=== PATIENT | female | born 1950 | race African-American/Black ===

== ENCOUNTER 2017-03-07 10:00 | Inpatient (IN) | payer MEDICARE, MEDICAID ==
[2017-03-13] MEDS ORDERED: Midazolam HCl 2 mg/2 ml Vial ONE (06:48)
[2017-03-13] MEDS ORDERED: Fentanyl 100 MCG/2 ML VIAL ONE ×2 (06:48→09:21)
[2017-03-13] MEDS ORDERED: Sodium Chloride 0.9% 100 ML ONE (07:19)
[2017-03-13] MEDS ORDERED: Propofol 200 MG/20 ML VIAL ONE (07:29)
[2017-03-13] MEDS ORDERED: Glycopyrrolate 0.2 MG/ML 5 ML SYRINGE ONE (07:29)
[2017-03-13] MEDS ORDERED: ePHEDrine/0.9% NaCl/PF SYRINGE 50 mg/10 ml ONE (07:29)
[2017-03-13] MEDS ORDERED: PHENYLEPHRINE-NS 100 MCG/ML 10 ML SYRINGE ONE (07:29)
[2017-03-13] MEDS ORDERED: Ondansetron HCl/PF 4 MG/2 ML Vial ONE (07:29)
[2017-03-13] MEDS ORDERED: Lidocaine 1% PF 5 ML VIAL ONE (07:29)
[2017-03-13] MEDS ORDERED: Promethazine HCl 25 MG/ML VIAL IM PRN (08:56)
[2017-03-13] MEDS ORDERED: Ondansetron HCl/PF 4 MG/2 ML Vial IVP PRN ×2 (08:56→10:00)
[2017-03-13] MEDS ORDERED: Dextrose 5% in Water 1,000 ML IV PRN (08:58)
[2017-03-13] MEDS ORDERED: Insulin Regular 300 UNITS/3 ML VIAL SC PRN (08:58)
[2017-03-13] MEDS ORDERED: Dextrose 50% Abboject 50 ML SYRINGE SLOW IVP PRN (08:58)
--- NOTE | 2017-03-13 09:03 | OP ---
PREOPERATIVE DIAGNOSIS: Unwanted ileostomy. SURGEON: Tono Bob M.D. PROCEDURE PERFORMED: Ileostomy closure. INDICATIONS: The patient is a 66-year-old female who underwent colon resection who had a protective loop ileostomy. FINDINGS: Healthy bowel. PROCEDURE IN DETAIL: After informed consent was obtained, the patient was taken to the operating ro om and given general endotracheal anesthesia, placed in the supine position. Abdomen was prepped an d draped in usual fashion. The bowel was closed with a pursestring of 0 silk suture. Then the skin was prepped and draped in the usual fashion. An elliptical incision was performed to incise the sk in and then the subcu was divided sharply circumferentially down to the bowel and fascia. The fasci a was from the bowel circumferentially to free it up. Then the old skin and fat was remov ed to freshen up the edge of the bowel. The bowel was closed with interrupted 3-0 Vicryl suture as a handsewn single layer and anastomoses or closure, hemostasis assured. Then gloves and instruments were changed and the field was irrigated with 2 liters of saline, pulse irrigated, then the fascia closed with a running #1 PDS. The subcu was closed with interrupted 3-0 Vicryl. Skin closed with s kin marybeth. David of Telfa were inserted between the marybeth. Sterile bandage applied. The patie nt tolerated the procedure well and transferred to recovery in good condition. Sponge and needle co unt verified correct x2.
[2017-03-13] MEDS ORDERED: Promethazine HCl 25 MG/ML VIAL IM/IV PRN (10:00)
[2017-03-13] MEDS ORDERED: Non-Formulary Medication 1 EACH PO PRN (10:00)
[2017-03-13] MEDS: 1/2 NS w/KCL 20 mEq 1,000 ML IV SCH ×3 (10:49→23:42)
[2017-03-13] MEDS: Famotidine 20 MG TAB PO SCH ×2 (10:50→19:59)
[2017-03-13] MEDS: Famotidine/PF 20 mg/2ml Vial SLOW IVP SCH ×2 (11:12→20:37)
[2017-03-13] MEDS: Acetaminophen 1,000 MG in Premix Bag 1 BAG IVPB SCH ×3 (11:12→23:37)
[2017-03-14 06:02] LABS: #Eosinphils 0.1 thou/uL (0.0-0.7); #Monocytes 0.5 thou/uL (0.11-0.59); #Neutrophils 4.9 thou/uL (1.40-6.50); %Basophils 0.1 % (0.0-1.0); %Eosinophils 2.3 % (0.0-10.0); %Lymphocytes 14.6 % (21.0-51.0); %Monocytes 7.9 % (0.0-10.0); Mean Platelet Volume 8.1 fL (7.4-10.4); Red Blood Cell (RBC) Count 3.46 mill/uL (4.20-5.40); White Blood Cell (WBC) Count 6.6 thou/uL (4.8-10.8)
[2017-03-14] MEDS: Acetaminophen 1,000 MG in Premix Bag 1 BAG IVPB SCH (06:17)
[2017-03-14 06:28] LABS: Anion Gap 11 mmol/L (10-20); BUN (Urea Nitrogen) 27 mg/dL (9.8-20.1); Calc. Creatinine Clearance 0 mL/min (70-130); Calcium 8.8 mg/dL (7.8-10.44); Carbon Dioxide 18 mmol/L (23-31); Chloride 111 mmol/L (98-107); Estimated GFR-MDRD 33
[2017-03-14] MEDS: Famotidine 20 MG TAB PO SCH ×2 (08:07→20:23)
[2017-03-14] MEDS: Famotidine/PF 20 mg/2ml Vial SLOW IVP SCH ×2 (08:07→20:25)
[2017-03-14] MEDS: 1/2 NS w/KCL 20 mEq 1,000 ML IV SCH ×3 (08:08→23:48)
[2017-03-15] MEDS: 1/2 NS w/KCL 20 mEq 1,000 ML IV SCH (08:13)
[2017-03-15] MEDS: Famotidine 20 MG TAB PO SCH ×2 (08:14→21:28)
[2017-03-15] MEDS: Famotidine/PF 20 mg/2ml Vial SLOW IVP SCH ×2 (08:14→21:29)
[2017-03-16 05:10] VITALS: BP 106/59; TEMP 98.1
[2017-03-16] MEDS: Famotidine/PF 20 mg/2ml Vial SLOW IVP SCH (07:36)
[2017-03-16] MEDS: Famotidine 20 MG TAB PO SCH (09:38)
--- NOTE | 2017-03-16 13:55 | DIS ---
DISCHARGE DIAGNOSIS: Unwanted ileostomy. PROCEDURES DURING ADMISSION: Ileostomy closure. HOSPITAL COURSE: The patient was admitted, taken to the operating room where she underwent a closur e of ileostomy. Postoperatively, she has done well. Bowel functions returned. She is tolerating a regular diet. She is discharged home on [place]. She will follow up with me in 5 days for staple re moval.
== END 2017-03-16 11:54 | disposition home or self-care (01) | DRG 331 ==
LOC: SURG A 03-13 05:32
PROVIDERS: ADMIT Surgery; ATTEND Surgery
PROC: 0DBB0ZZ Excision of Ileum, Open Approach (ICD-10-PCS; principal; 2017-03-13)
DX: Z43.2 Encounter for attention to ileostomy (principal); I10 Essential (primary) hypertension; E11.9 Type 2 diabetes mellitus without complications; Z96.653 Presence of artificial knee joint, bilateral; Z83.3 Family history of diabetes mellitus; Z82.3 Family history of stroke; Z82.49 Family history of ischemic heart disease and other diseases of the circulatory system
CPT/HCPCS: 36415; 36416; 80048; 85025; A4216; J0131; J0694; J2001; J2250; J2405; J2704; J3010; J7050; S0028

== ENCOUNTER 2017-03-07 10:19 | Outpatient (CLI) | payer MEDICARE, MEDICAID ==
[2017-03-07 13:36] LABS: #Eosinphils 0.1 thou/uL (0.0-0.7); #Lymphocytes 1.5 thou/uL (1.20-3.40); #Monocytes 0.7 thou/uL (0.11-0.59); %Basophils 0.5 % (0.0-1.0); %Eosinophils 1.2 % (0.0-10.0); %Lymphocytes 24.1 % (21.0-51.0); %Monocytes 11.1 % (0.0-10.0); Hematocrit 31.7 % (36.0-47.0); Mean Platelet Volume 8.8 fL (7.4-10.4); Red Blood Cell (RBC) Count 3.76 mill/uL (4.20-5.40); White Blood Cell (WBC) Count 6.3 thou/uL (4.8-10.8)
[2017-03-07 13:52] LABS: ALT (SGPT) Less than 7 U/L (8-55); AST (SGOT) 12 U/L (5-34); Alkaline Phosphatase 118 U/L (40-150); Anion Gap 13 mmol/L (10-20); BUN (Urea Nitrogen) 42 mg/dL (9.8-20.1); Bilirubin, Total 0.3 mg/dL (0.2-1.2); Calc. Creatinine Clearance 0 mL/min (70-130); Calcium 9.6 mg/dL (7.8-10.44); Carbon Dioxide 17 mmol/L (23-31); Chloride 111 mmol/L (98-107); Estimated GFR-MDRD 29; Globulin 4.8 g/dL (2.4-3.5); Protein, Total 8.6 g/dL (6.0-8.3)
[2017-03-08 04:41] LABS: Hemoglobin A1c 6.3 % (4.0-6.0)
--- NOTE | 2017-03-09 06:28 | EKG ---
Test Reason : PREOP Blood Pressure : / mmHG Vent. Rate : 056 BPM Atrial Rate : 056 BPM P-R Int : 152 ms QRS Dur : 098 ms QT Int : 412 ms P-R-T Axes : 070 026 054 degrees QTc Int : 397 ms Sinus bradycardia Otherwise normal ECG When compared with ECG of 25-AUG-2016 12:53, Vent. rate has decreased BY 45 BPM Confirmed by SARAVANAN MOISE ([id number]) on 03/09/2017 6:27:42 AM Referred By: SAVANNA Confirmed By:SARAVANAN MOISE
== END 2017-03-07 10:20 | disposition home or self-care (01) ==
LOC: LABBT 10:19
PROVIDERS: ATTEND Surgery
DX: Z01.818 Encounter for other preprocedural examination (principal); Z93.2 Ileostomy status
CPT/HCPCS: 80053; 83036; 85025; 93005; 93010

== ENCOUNTER 2017-05-18 12:49 | Inpatient (IN) | payer MEDICARE, MEDICAID ==
[2017-05-18] MEDS ORDERED: Iopamidol 370 76% 100 ML VIAL ONE (14:04)
[2017-05-18 14:09] LABS: Hematocrit 30.4 % (36.0-47.0); Mean Platelet Volume 7.9 fL (7.4-10.4); White Blood Cell (WBC) Count 14.2 thou/uL (4.8-10.8)
[2017-05-18 14:32] LABS: Anisocytosis SLIGHT = 6-15 cells (100X) (0-5/hpf); Band 10 % (5-11); Hypochromia SLIGHT = 6-15 cells (100X) (0-5/hpf); Neutrophil 77 % (42-75); Polychromasia SLIGHT = 2-3 cells (100X) (0-2/hpf); Reactive Lymphocytes 1 % (0-10); Target Cells SLIGHT = 2-5 cells (100X) (0-1/hpf)
[2017-05-18 14:35] LABS: ALT (SGPT) 12 U/L (8-55); AST (SGOT) 16 U/L (5-34); Alkaline Phosphatase 110 U/L (40-150); Anion Gap 14 mmol/L (10-20); BUN (Urea Nitrogen) 24 mg/dL (9.8-20.1); Bilirubin, Total 0.7 mg/dL (0.2-1.2); Calc. Creatinine Clearance 0 mL/min (70-130); Calcium 9.3 mg/dL (7.8-10.44); Carbon Dioxide 25 mmol/L (23-31); Chloride 100 mmol/L (98-107); Estimated GFR-MDRD 36; Globulin 4.7 g/dL (2.4-3.5); Protein, Total 8.3 g/dL (6.0-8.3)
[2017-05-18] MEDS ORDERED: Piperacillin/Tazobactam 3.375 GM in Sodium Chloride 0.9% 100 ML IVPB ONE (15:30)
--- NOTE | 2017-05-18 15:45 | CT ---
CT OF THE ABDOMEN AND PELVIS WITH CONTRAST: COMPARISON: 10/16/16. HISTORY: Wound infection, recent colostomy take-down/reversal. Swelling and drainage to the area. TECHNIQUE: Multiple contiguous axial images were obtained in a CT of the abdomen and pelvis with contrast. Cari nal reformats were performed. FINDINGS: Postsurgical changes are seen in the right lower quadrant of the abdomen from colostomy take-down. T here is air and stranding change in the subcutaneous tissues. The region of air measures approximate ly 5.9 cm in size. There is air along the abdominal fascia. This air may be within loops of small b owel or this area could be separate from the small bowel loops. This differentiation cannot be perfo rmed without oral contrast. The patient is status post cholecystectomy and hysterectomy. The liver, kidneys, adrenal glands, spl een, and pancreas are unremarkable, although evaluation is limited on this noncontrast examination. No free fluid is seen in the abdomen or pelvis. There is moderate stool in the colon. Scattered diverticula are seen in the colon. The small bowel is normal in caliber without significant distention. No abdominal or pelvic lymphadenopathy are seen . Degenerative changes and postsurgical changes are seen in the spine. The visualized inferior thorax is unremarkable. IMPRESSION: 1. The patient appears to have air and stranding change in the right lower quadrant wound. This lik trav represents a wound infection. If the patient has an open packed wound then the air may be from t he open wound. However, if the wound is closed, then this air may be secondary to a focal abscess in this location. 2. There are bubbles of air along the abdominal fascia. These may represent air within small bowel loops. Separate air pockets could not be excluded as no p.o. contrast was administered for this exam ination. POS: [facility]
[2017-05-18] MEDS ORDERED: Acetaminophen 325 MG TAB PO PRN (17:57)
[2017-05-18] MEDS ORDERED: Ondansetron ODT 4 MG TAB SL PRN (17:57)
[2017-05-18] MEDS ORDERED: Ondansetron HCl/PF 4 MG/2 ML Vial IVP PRN (17:57)
[2017-05-18] MEDS ORDERED: Dextrose 5% in Water 1,000 ML IV PRN (17:58)
[2017-05-18] MEDS ORDERED: Insulin Regular 300 UNITS/3 ML VIAL SC PRN (17:58)
[2017-05-18] MEDS ORDERED: Dextrose 50% Abboject 50 ML SYRINGE IVP PRN (17:58)
[2017-05-18 20:09] VITALS: BMI 41.6
[2017-05-18] MEDS ORDERED: Piperacillin/Tazobactam 3.375 GM in Sodium Chloride 0.9% 100 ML IVPB SCH (23:59)
[2017-05-19] MEDS ORDERED: 1/2 NS w/KCL 20 mEq 1,000 ML IV SCH (00:01)
[2017-05-19] MEDS ORDERED: Propofol 500 MG/50 ML VIAL ONE (07:02)
[2017-05-19] MEDS ORDERED: Fentanyl 100 MCG/2 ML VIAL ONE ×2 (07:02→12:52)
[2017-05-19] MEDS ORDERED: Piperacillin/Tazobactam 3.375 GM, Admixture Fee 1 EACH in Sodium Chloride 0.9% 100 ML IVPB SCH (12:45)
[2017-05-19] MEDS ORDERED: Midazolam HCl 2 mg/2 ml Vial ONE (12:52)
[2017-05-19] MEDS ORDERED: Morphine 4 MG/ML Carpuject SLOW IVP PRN (14:00)
[2017-05-19] MEDS ORDERED: Dextrose 5% in Water 1,000 ML IV PRN ×2 (14:00→14:05)
[2017-05-19] MEDS ORDERED: hydrALAZINE 20 MG/ML VIAL SLOW IVP PRN (14:00)
[2017-05-19] MEDS ORDERED: Ondansetron HCl/PF 4 MG/2 ML Vial IVP PRN ×2 (14:00→14:57)
[2017-05-19] MEDS ORDERED: Mag-Al 1200 mg/1200 mg/30 ML UDCUP PO PRN (14:00)
[2017-05-19] MEDS ORDERED: Dextrose 50% Abboject 50 ML SYRINGE SLOW IVP PRN ×2 (14:00→14:05)
[2017-05-19] MEDS ORDERED: Calcium Carbonate 500 MG ChewTAB PO PRN (14:00)
[2017-05-19] MEDS ORDERED: Promethazine HCl 25 MG/ML VIAL IM PRN ×2 (14:00→14:57)
[2017-05-19] MEDS ORDERED: traMADol HCl 50 MG TAB PO PRN ×2 (14:03)
[2017-05-19] MEDS ORDERED: Insulin Regular 300 UNITS/3 ML VIAL SC PRN (14:05)
--- NOTE | 2017-05-19 14:22 | OP ---
PREOPERATIVE DIAGNOSIS: Abdominal wall abscess. SURGEON: Tono Bob M.D. PROCEDURE PERFORMED: Incision and drainage, removal of old suture material irrigation and wound VAC placement. INDICATIONS: The patient is a 66-year-old female who had a previous ileostomy a few months ago. She got a wound infection and was treated with wound VAC and it seemed to heal and then over the last co uple of days, it recurred. FINDINGS: There was some brownish fluid. It did not have a foul smell. I could not see any definit e fistula or exposed bowel. The fascia was opened, but it was not obviously leaking from the bowel. There were a couple of large PDS sutures, [id number] were removed that were fractured and could be possible nidus for this. DESCRIPTION OF PROCEDURE: After informed consent was obtained, the patient was taken to the operatin g room and given general mask anesthesia, placed in the supine position. Her abdomen was prepped and draped in the usual fashion. An incision was performed through the old scar to release the brown pu rulent fluid. This was sent for culture and sensitivity. The wound was inspected and could not see a source, but there was a couple of [id number] of PDS that were removed. The wound was thoroug hly irrigated with pulse offender job retention specialist and 3 liters of saline. Hemostasis achieved with electrocautery. Wound care team came in and placed a wound VAC. The patient tolerated this procedure well and was t ransferred to recovery in good condition.
[2017-05-19] MEDS ORDERED: Morphine 4 MG/ML VIAL IV PRN ×2 (14:27)
[2017-05-19] MEDS ORDERED: Promethazine HCl 25 MG/ML VIAL SLOW IVP PRN (14:57)
[2017-05-19] MEDS ORDERED: Ondansetron HCl/PF 4 MG/2 ML Vial ONE (15:25)
[2017-05-19] MEDS ORDERED: ePHEDrine/0.9% NaCl/PF SYRINGE 50 mg/10 ml ONE (15:25)
[2017-05-19] MEDS ORDERED: Dexamethasone 20 MG/5 ML VIAL ONE (15:25)
[2017-05-19] MEDS ORDERED: Propofol 200 MG/20 ML VIAL ONE (15:25)
[2017-05-19] MEDS ORDERED: PHENYLEPHRINE-NS 100 MCG/ML 10 ML SYRINGE ONE (15:25)
[2017-05-19] MEDS ORDERED: Lidocaine 1% PF 5 ML VIAL ONE (15:25)
[2017-05-19] MEDS: Piperacillin/Tazobactam 3.375 GM, Admixture Fee 1 EACH in Sodium Chloride 0.9% 100 ML IVPB SCH (19:38)
[2017-05-19] MEDS: Sodium Chloride 0.9% 1,000 ML IV SCH ×2 (19:52→22:52)
[2017-05-19] MEDS: Famotidine 20 MG TAB PO SCH (20:10)
[2017-05-19] MEDS: Docusate 100 MG CAP PO SCH (20:10)
[2017-05-19] MEDS: Famotidine/PF 20 mg/2ml Vial SLOW IVP SCH (20:10)
[2017-05-20] MEDS: Piperacillin/Tazobactam 3.375 GM, Admixture Fee 1 EACH in Sodium Chloride 0.9% 100 ML IVPB SCH ×3 (00:10→12:07)
[2017-05-20] MEDS: Sodium Chloride 0.9% 1,000 ML IV SCH (05:30)
[2017-05-20 06:33] LABS: Hematocrit 27.6 % (36.0-47.0); Mean Platelet Volume 7.7 fL (7.4-10.4); Neutrophil 78 % (42-75); Red Blood Cell (RBC) Count 3.34 mill/uL (4.20-5.40); White Blood Cell (WBC) Count 10.1 thou/uL (4.8-10.8)
[2017-05-20 07:53] VITALS: TEMP 98.8
[2017-05-20] MEDS: Famotidine 20 MG TAB PO SCH (08:40)
[2017-05-20] MEDS: Famotidine/PF 20 mg/2ml Vial SLOW IVP SCH (08:41)
[2017-05-20] MEDS: Docusate 100 MG CAP PO SCH (08:41)
[2017-05-20] MEDS ORDERED: Enoxaparin Sodium 40 MG/0.4 ML SYRINGE SC SCH (09:00)
[2017-05-20 12:24] VITALS: BP 122/77
--- NOTE | 2017-05-20 13:24 | PRG ---
DATE OF SERVICE: 05/20/2017 SUBJECTIVE: Ms. Alvarado is doing well today. She is awake and alert and tolerated her diet. Her wo und VAC has been applied by Wound Care. OBJECTIVE: LUNGS: Clear to auscultation. CARDIAC: Regular rate and rhythm without murmur or gallop. ABDOMEN: Soft, nontender. VITAL SIGNS: Temperature 98.3, 67, 122/77. Patient is doing well after drainage of the ileostomy reversal site abscess. Wound VAC has been appl ied. She is being discharged home today. Prescriptions, antibiotics and analgesics have been writte n by Dr. Bob. Home health care has been arranged. She is being discharged home today.
== END 2017-05-20 13:13 | disposition home or self-care (01) | DRG 857 ==
LOC: ERS 12:49 → SURG B 14:51
PROVIDERS: ADMIT Surgery; ATTEND Surgery
PROC: 0J980ZZ Drainage of Abdomen Subcutaneous Tissue and Fascia, Open Approach (ICD-10-PCS; principal; 2017-05-19)
PROC: 0JC80ZZ Extirpation of Matter from Abdomen Subcutaneous Tissue and Fascia, Open Approach (ICD-10-PCS; 2017-05-19)
DX: T81.4XXA Infection following a procedure, initial encounter (principal); L02.211 Cutaneous abscess of abdominal wall; I10 Essential (primary) hypertension; E11.9 Type 2 diabetes mellitus without complications; E78.5 Hyperlipidemia, unspecified; Z90.49 Acquired absence of other specified parts of digestive tract
CPT/HCPCS: 36415; 36416; 74177; 80053; 80061; 83036; 84439; 84443; 85025; 87040; 87070; 87076; 87077; 87186; 87205; 96365; J1100; J1815; J2001; J2250; J2405; J2543; J2704; J3010; J3370; J7050

== ENCOUNTER 2017-06-17 10:42 | Emergency (ER) | payer MEDICARE, MEDICAID ==
[2017-06-17] MEDS ORDERED: Acetaminophen 500 MG TAB ONE ×2 (11:09)
[2017-06-17 11:38] LABS: #Lymphocytes 1.3 thou/uL (1.20-3.40); #Monocytes 1.1 thou/uL (0.11-0.59); #Neutrophils 9.1 thou/uL (1.40-6.50); %Basophils 0.3 % (0.0-1.0); %Eosinophils 0.2 % (0.0-10.0); %Lymphocytes 10.9 % (21.0-51.0); %Monocytes 9.8 % (0.0-10.0); %Neutrophils 78.7 % (42.0-75.0); Hemoglobin 9.9 g/dL (12.0-16.0); Mean Corpuscular HGB CONC 31.3 g/dL (32.0-36.0); Mean Corpuscular Hemoglobin 25.7 pg (27.0-31.0); Mean Corpuscular Volume 82.1 fl (81.0-99.0); Mean Platelet Volume 8.5 fL (7.4-10.4); Platelet Count 288 thou/uL (130-400); RBC Distribution Width 16.8 % (11.5-14.5); Red Blood Cell (RBC) Count 3.87 mill/uL (4.20-5.40); White Blood Cell (WBC) Count 11.6 thou/uL (4.8-10.8)
[2017-06-17 11:54] LABS: Albumin 3.9 g/dL (3.4-4.8)
[2017-06-17 12:07] LABS: ALT (SGPT) 7 U/L (8-55); AST (SGOT) 14 U/L (5-34); Alkaline Phosphatase 104 U/L (40-150); BUN (Urea Nitrogen) 20 mg/dL (9.8-20.1); Bilirubin, Total 0.7 mg/dL (0.2-1.2); CRP (Inflammatory) 10.97 mg/dL (= or < 0.5); Calc. Creatinine Clearance 0 mL/min (70-130); Calcium 9.4 mg/dL (7.8-10.44); Carbon Dioxide 24 mmol/L (23-31); Chloride 99 mmol/L (98-107); Estimated GFR-MDRD 44; Globulin 4.4 g/dL (2.4-3.5); Glucose 130 mg/dL (80-115); Potassium 3.4 mmol/L (3.5-5.1); Protein, Total 8.2 g/dL (6.0-8.3); Sodium 135 mmol/L (136-145)
[2017-06-17 12:09] LABS: Anion Gap 15 mmol/L (10-20)
--- NOTE | 2017-06-17 12:18 | RAD ---
2 VIEWS OF CHEST: Date: 06/17/17 COMPARISON: 08/24/16. HISTORY: Swelling and pain. FINDINGS: There is atherosclerotic calcification of the aortic arch. There is no pneumothorax or pleural fluid, and no focal consolidation or alveolar edema. There is elevation of the right hemidiaphragm. There i s slight blunting of the left costophrenic angle which could represent small volume left pleural effu sada and/or pleural scar. IMPRESSION: Prominence of the cardiac silhouette with no lobar consolidation or alveolar edema. POS: [facility]
== END 2017-06-17 12:31 | disposition home or self-care (01) ==
LOC: ERS 10:42
DX: K94.02 Colostomy infection (principal); E11.9 Type 2 diabetes mellitus without complications; E78.5 Hyperlipidemia, unspecified; I10 Essential (primary) hypertension; E66.9 Obesity, unspecified; Z79.899 Other long term (current) drug therapy
CPT/HCPCS: 36415; 71046; 80053; 85025; 85652; 86140

== ENCOUNTER 2017-06-18 10:42 | Emergency (ER) | payer MEDICARE, MEDICAID ==
[2017-06-18] MEDS ORDERED: Cephalexin 250 MG CAP ONE (11:21)
[2017-06-18] MEDS ORDERED: Sulfameth/Trimethoprim DS 800-160mg TAB ONE (11:21)
== END 2017-06-18 11:30 | disposition home or self-care (01) ==
LOC: ERS 10:42
DX: Z48.817 Encounter for surgical aftercare following surgery on the skin and subcutaneous tissue (principal); E11.9 Type 2 diabetes mellitus without complications; E78.5 Hyperlipidemia, unspecified; I10 Essential (primary) hypertension; Z79.899 Other long term (current) drug therapy
CPT/HCPCS: 99282

== ENCOUNTER 2017-07-25 08:00 | Inpatient (IN) | payer MEDICARE, MEDICAID ==
[2017-07-25 14:02] VITALS: BMI 42.7
[2017-07-31] MEDS ORDERED: cefOXitin 2 GM, Syringe 1 ML in Sterile Water 10 ML SLOW IVP SCH (06:30)
[2017-07-31] MEDS ORDERED: Fentanyl 100 MCG/2 ML VIAL ONE ×3 (07:03→10:26)
[2017-07-31] MEDS ORDERED: Midazolam HCl 2 mg/2 ml Vial ONE (07:03)
[2017-07-31] MEDS ORDERED: Ondansetron HCl/PF 4 MG/2 ML Vial IVP PRN ×3 (09:39→11:01)
[2017-07-31] MEDS ORDERED: hydrALAZINE 20 MG/ML VIAL SLOW IVP PRN (09:39)
[2017-07-31] MEDS ORDERED: Promethazine HCl 25 MG/ML VIAL IM PRN ×3 (09:39→11:01)
[2017-07-31] MEDS ORDERED: Promethazine HCl 25 MG/ML VIAL SLOW IVP PRN (09:57)
[2017-07-31] MEDS ORDERED: Meperidine HCl/PF 25 MG/ML VIAL SLOW IVP PRN (09:57)
--- NOTE | 2017-07-31 10:29 | OP ---
DATE OF PROCEDURE: 07/31/2017 PREOPERATIVE DIAGNOSIS: Chronic enterocutaneous fistula. SURGEON: Tono Bob M.D. PROCEDURE PERFORMED: Exploratory laparotomy, small bowel resection with anastomosis. INDICATIONS: A 67-year-old female who had undergone an ileostomy takedown about a year ago, continue d to have drainage. She had 2 exploratory surgeries removing suture material, continued to drain. A ttempts at fistulogram did not show officially until recently, this one demonstrated connection to th e small bowel. FINDINGS: She had undergone treatment with bowel rest and did not seem to change this. FINDINGS: A loop of ileum that was attached to the abdominal wall was the source of the fistula. PROCEDURE IN DETAIL: After informed consent was obtained, the patient was taken to the operating mel m, given general endotracheal anesthesia. A low midline incision was performed. The subcu divided s harply. It was a very tedious dissection as she had incredible intraabdominal adhesions. It was a v brigid slow process of lysis of adhesions performed sharply. Eventually was able to free up the anterio r abdominal wall and then move towards the area of concern, approached it circumferentially eventuall y got into it. I closed this opening temporarily with a 2-0 silk suture, I then freed it up from the anterior abdominal wall. I was able to isolate the bowel limb and then divide the small bowel with the FAWN on either side and then divided the mesentery with the LigaSure, it was sent to pathology for further analysis. The wound was irrigated with pulse hand surgeon from inside, then a primary end-to-e nd anastomosis was performed using a single layer handsewn technique with 3-0 Vicryl suture circumfer entially. Again, the abdominal cavity was irrigated thoroughly. Hemostasis was assured. The fascia closed with what omentum I could fine was placed anterior. Then the fascia closed with interrupted [id number] of #1 Prolene. The subcutaneous was irrigated with pulse hand surgeon and then loosely approximated with interrupted 3-0 Vicryls and then about every centimeter and a half skin stapled an d then adilson in between. The fistulous tract was also irrigated with pulse hand surgeon and packed with iodoform gauze. Sterile bandage applied. The patient tolerated the procedure well and transferred to recovery in good condition. Sponge and needle count verified correct x2.
[2017-07-31] MEDS ORDERED: diphenhydrAMINE 50 MG/ML VIAL IM PRN (11:01)
[2017-07-31] MEDS ORDERED: Zolpidem Tartrate 5 MG TAB PO PRN (11:01)
[2017-07-31] MEDS ORDERED: Fentanyl 5000 MCG/250 ML CADD IVPB PRN (11:01)
[2017-07-31] MEDS ORDERED: diphenhydrAMINE 25 MG CAP PO PRN (11:01)
[2017-07-31] MEDS ORDERED: diphenhydrAMINE 50 MG/ML VIAL IVP PRN (11:01)
[2017-07-31] MEDS ORDERED: Naloxone HCl 0.4 mg/ml Vial IV PRN (11:01)
[2017-07-31] MEDS ORDERED: fentaNYL Citrate/PF 2,000 MCG in Sodium Chloride 0.9% 60 ML IV PRN (11:15)
[2017-07-31] MEDS ORDERED: Communication Order-Pharmacy FS SCH (11:15)
[2017-07-31] MEDS: Sodium Chloride 0.9% 1,000 ML IV SCH ×2 (12:52→18:07)
[2017-07-31] MEDS: Ketorolac Tromethamine 30 MG/ML VIAL IVP SCH ×2 (12:53→17:51)
[2017-07-31] MEDS ORDERED: PHENYLEPHRINE-NS 100 MCG/ML 10 ML SYRINGE ONE (14:39)
[2017-07-31] MEDS ORDERED: Ondansetron HCl/PF 4 MG/2 ML Vial ONE (14:39)
[2017-07-31] MEDS ORDERED: Ketorolac Tromethamine 30 MG/ML VIAL ONE (14:39)
[2017-07-31] MEDS ORDERED: Lidocaine 1% PF 5 ML VIAL ONE (14:39)
[2017-07-31] MEDS ORDERED: ePHEDrine/0.9% NaCl/PF SYRINGE 50 mg/10 ml ONE (14:39)
[2017-07-31] MEDS ORDERED: Glycopyrrolate 0.2 MG/ML 5 ML SYRINGE ONE (14:39)
[2017-07-31] MEDS ORDERED: Propofol 200 MG/20 ML VIAL ONE (14:39)
[2017-07-31] MEDS ORDERED: Dexamethasone 20 MG/5 ML VIAL ONE (14:39)
[2017-07-31] MEDS: Meropenem 2 GM, IV Admixture Fee-Chemo 1 UNITS in Sodium Chloride 0.9% 100 ML IVPB SCH ×2 (15:14→21:34)
[2017-07-31] MEDS: Famotidine 20 MG TAB PO SCH (20:03)
[2017-07-31] MEDS: Famotidine/PF 20 mg/2ml Vial SLOW IVP SCH (21:34)
[2017-08-01] MEDS: Ketorolac Tromethamine 30 MG/ML VIAL IVP SCH ×4 (00:44→18:16)
[2017-08-01] MEDS: Sodium Chloride 0.9% 1,000 ML IV SCH ×3 (01:40→18:16)
[2017-08-01 04:42] LABS: #Lymphocytes 0.8 thou/uL (1.20-3.40); #Monocytes 0.6 thou/uL (0.11-0.59); #Neutrophils 10.8 thou/uL (1.40-6.50); %Eosinophils 0.1 % (0.0-10.0); %Lymphocytes 6.4 % (21.0-51.0); %Neutrophils 88.6 % (42.0-75.0); Hemoglobin 9.9 g/dL (12.0-16.0); Mean Corpuscular Hemoglobin 25.7 pg (27.0-31.0); Mean Corpuscular Volume 82.9 fl (81.0-99.0); Mean Platelet Volume 9.7 fL (7.4-10.4); Platelet Count 221 thou/uL (130-400); RBC Distribution Width 17.6 % (11.5-14.5); Red Blood Cell (RBC) Count 3.85 mill/uL (4.20-5.40); White Blood Cell (WBC) Count 12.2 thou/uL (4.8-10.8)
[2017-08-01 05:07] LABS: Anion Gap 15 mmol/L (10-20); BUN (Urea Nitrogen) 38 mg/dL (9.8-20.1); Calc. Creatinine Clearance 55 mL/min (70-130); Calcium 8.7 mg/dL (7.8-10.44); Carbon Dioxide 24 mmol/L (23-31); Chloride 107 mmol/L (98-107); Estimated GFR-MDRD 36; Glucose 167 mg/dL (80-115); Potassium 3.6 mmol/L (3.5-5.1); Sodium 142 mmol/L (136-145)
[2017-08-01] MEDS: Meropenem 2 GM, IV Admixture Fee-Chemo 1 UNITS in Sodium Chloride 0.9% 100 ML IVPB SCH ×3 (06:59→21:27)
[2017-08-01] MEDS ORDERED: Sodium Chloride 0.9% 1,000 ML IV SCH (07:45)
[2017-08-01] MEDS: Enoxaparin Sodium 40 MG/0.4 ML SYRINGE SC SCH (09:07)
[2017-08-01] MEDS: Famotidine/PF 20 mg/2ml Vial SLOW IVP SCH ×2 (09:07→19:55)
[2017-08-01] MEDS: Famotidine 20 MG TAB PO SCH ×2 (09:32→21:27)
[2017-08-01] MEDS ORDERED: Dextrose 5% in Water 1,000 ML IV PRN (11:20)
[2017-08-01] MEDS ORDERED: Dextrose 50% Abboject 50 ML SYRINGE SLOW IVP PRN (11:20)
[2017-08-01] MEDS ORDERED: Insulin Regular 300 UNITS/3 ML VIAL SC PRN (11:20)
[2017-08-02] MEDS: Ketorolac Tromethamine 30 MG/ML VIAL IVP SCH ×5 (00:53→22:22)
[2017-08-02] MEDS: Sodium Chloride 0.9% 1,000 ML IV SCH ×3 (03:49→19:46)
[2017-08-02 06:17] LABS: Anion Gap 11 mmol/L (10-20); BUN (Urea Nitrogen) 36 mg/dL (9.8-20.1); Calc. Creatinine Clearance 64 mL/min (70-130); Calcium 8.6 mg/dL (7.8-10.44); Carbon Dioxide 22 mmol/L (23-31); Chloride 109 mmol/L (98-107); Estimated GFR-MDRD 43; Glucose 124 mg/dL (80-115); Potassium 3.2 mmol/L (3.5-5.1); Sodium 139 mmol/L (136-145)
[2017-08-02] MEDS: Meropenem 2 GM, IV Admixture Fee-Chemo 1 UNITS in Sodium Chloride 0.9% 100 ML IVPB SCH ×3 (06:43→22:22)
[2017-08-02 06:56] LABS: Anisocytosis SLIGHT = 6-15 cells (100X) (0-5/hpf); Band 1 % (5-11); Lymphocytes 18 % (21-51); MDiff Complete? YES; Mean Corpuscular HGB CONC 31.1 g/dL (32.0-36.0); Mean Corpuscular Hemoglobin 25.6 pg (27.0-31.0); Mean Corpuscular Volume 82.4 fl (81.0-99.0); Mean Platelet Volume 9.8 fL (7.4-10.4); Monocytes 5 % (0-10); Neutrophil 76 % (42-75); PLT Morphology Comment Appears Adequate; Platelet Count 194 thou/uL (130-400); RBC Distribution Width 17.6 % (11.5-14.5); Red Blood Cell (RBC) Count 3.52 mill/uL (4.20-5.40); White Blood Cell (WBC) Count 13.2 thou/uL (4.8-10.8)
[2017-08-02] MEDS: Famotidine 20 MG TAB PO SCH ×2 (08:20→19:46)
[2017-08-02] MEDS: Enoxaparin Sodium 40 MG/0.4 ML SYRINGE SC SCH (08:21)
[2017-08-02] MEDS: Famotidine/PF 20 mg/2ml Vial SLOW IVP SCH ×2 (08:21→19:47)
[2017-08-02] MEDS ORDERED: oxyCODONE/Acetaminophen 5 mg/325 mg Tablet PO PRN ×2 (12:56)
[2017-08-02] MEDS ORDERED: traMADol HCl 50 MG TAB PO PRN ×2 (12:58)
[2017-08-03] MEDS: Sodium Chloride 0.9% 1,000 ML IV SCH ×3 (03:30→22:16)
[2017-08-03] MEDS: Ketorolac Tromethamine 30 MG/ML VIAL IVP SCH ×2 (05:05→12:14)
[2017-08-03] MEDS: Meropenem 2 GM, IV Admixture Fee-Chemo 1 UNITS in Sodium Chloride 0.9% 100 ML IVPB SCH ×3 (05:07→21:01)
[2017-08-03] MEDS: Enoxaparin Sodium 40 MG/0.4 ML SYRINGE SC SCH (08:04)
[2017-08-03] MEDS: Famotidine 20 MG TAB PO SCH ×2 (08:04→21:01)
[2017-08-03] MEDS: Famotidine/PF 20 mg/2ml Vial SLOW IVP SCH ×2 (08:05→21:02)
[2017-08-04] MEDS: Sodium Chloride 0.9% 1,000 ML IV SCH ×2 (05:55→11:06)
[2017-08-04] MEDS: Meropenem 2 GM, IV Admixture Fee-Chemo 1 UNITS in Sodium Chloride 0.9% 100 ML IVPB SCH (06:16)
[2017-08-04] MEDS: Enoxaparin Sodium 40 MG/0.4 ML SYRINGE SC SCH (08:06)
[2017-08-04] MEDS: Famotidine 20 MG TAB PO SCH (08:06)
[2017-08-04] MEDS: Famotidine/PF 20 mg/2ml Vial SLOW IVP SCH (08:07)
[2017-08-04 11:05] VITALS: TEMP 98.2
[2017-08-04 11:14] VITALS: BP 146/83
--- NOTE | 2017-08-04 13:38 | DIS ---
DISCHARGE DIAGNOSIS: Enterocutaneous fistula. PROCEDURES DURING ADMISSION: Exploratory laparotomy, small bowel resection with primary anastomosis. HOSPITAL COURSE: The patient was admitted. She was taken to the operating room where she underwent a small bowel resection and resection of the fistula. Postoperatively, she has done well. Her gut f unction has returned. She is tolerating a regular diet. She is afebrile. Pain is controlled on p.o . meds. She is discharged home on tramadol. She will follow up with me in 2 weeks. We will also or [facility] to help her with dressing changes.
== END 2017-08-04 12:54 | disposition home health service (06) | DRG 908 ==
LOC: SURG A 07-31 05:47 → SURG B 07-31 11:02
PROVIDERS: ADMIT Surgery; ATTEND Surgery
PROC: 0DT80ZZ Resection of Small Intestine, Open Approach (ICD-10-PCS; principal; 2017-07-31)
DX: T81.83XA Persistent postprocedural fistula, initial encounter (principal); K63.2 Fistula of intestine; K66.0 Peritoneal adhesions (postprocedural) (postinfection); E11.9 Type 2 diabetes mellitus without complications; E78.5 Hyperlipidemia, unspecified; I10 Essential (primary) hypertension; M19.90 Unspecified osteoarthritis, unspecified site
CPT/HCPCS: 36415; 36416; 80048; 85025; 88307; 94640; A4216; J0694; J1100; J1650; J1885; J2001; J2185; J2250; J2405; J2704; J3010; J7050; J7620; S0028

== ENCOUNTER 2017-07-25 13:42 | Outpatient (CLI) | payer MEDICARE, MEDICAID ==
[2017-07-25 15:21] LABS: #Eosinphils 0.2 thou/uL (0.0-0.7); #Lymphocytes 1.3 thou/uL (1.20-3.40); #Monocytes 0.3 thou/uL (0.11-0.59); #Neutrophils 2.5 thou/uL (1.40-6.50); %Basophils 0.2 % (0.0-1.0); %Eosinophils 5.1 % (0.0-10.0); %Lymphocytes 29.7 % (21.0-51.0); %Monocytes 6.6 % (0.0-10.0); %Neutrophils 58.4 % (42.0-75.0); Hemoglobin 10.5 g/dL (12.0-16.0); Mean Corpuscular HGB CONC 32.3 g/dL (32.0-36.0); Mean Corpuscular Hemoglobin 26.5 pg (27.0-31.0); Mean Corpuscular Volume 82.2 fl (81.0-99.0); Mean Platelet Volume 9.8 fL (7.4-10.4); Platelet Count 229 thou/uL (130-400); RBC Distribution Width 17.6 % (11.5-14.5); Red Blood Cell (RBC) Count 3.95 mill/uL (4.20-5.40); White Blood Cell (WBC) Count 4.3 thou/uL (4.8-10.8)
[2017-07-25 15:43] LABS: ALT (SGPT) 8 U/L (8-55); AST (SGOT) 18 U/L (5-34); Albumin 4.2 g/dL (3.4-4.8); Alkaline Phosphatase 121 U/L (40-150); Anion Gap 14 mmol/L (10-20); BUN (Urea Nitrogen) 24 mg/dL (9.8-20.1); Bilirubin, Total 0.5 mg/dL (0.2-1.2); Calc. Creatinine Clearance 0 mL/min (70-130); Calcium 9.4 mg/dL (7.8-10.44); Carbon Dioxide 25 mmol/L (23-31); Chloride 105 mmol/L (98-107); Estimated GFR-MDRD 43; Globulin 3.8 g/dL (2.4-3.5); Glucose 123 mg/dL (80-115); Potassium 3.5 mmol/L (3.5-5.1); Sodium 140 mmol/L (136-145)
--- NOTE | 2017-07-25 16:09 | EKG ---
Test Reason : Blood Pressure : / mmHG Vent. Rate : 075 BPM Atrial Rate : 075 BPM P-R Int : 152 ms QRS Dur : 106 ms QT Int : 412 ms P-R-T Axes : 066 -02 031 degrees QTc Int : 460 ms Normal sinus rhythm with sinus arrhythmia Non-specific intra-ventricular conduction delay Abnormal ECG Confirmed by BRETT LAIRD ([id number]) on 07/25/2017 4:09:22 PM Referred By: SAVANNA Confirmed By:BRETT LAIRD
== END 2017-07-25 13:43 | disposition home or self-care (01) ==
LOC: LABBT 13:42
PROVIDERS: ATTEND Surgery
DX: Z01.818 Encounter for other preprocedural examination (principal); K63.2 Fistula of intestine
CPT/HCPCS: 80053; 85025; 93005; 93010

== ENCOUNTER 2017-08-09 11:26 | Inpatient (IN) | payer MEDICARE, MEDICAID ==
[2017-08-09 13:11] LABS: #Eosinphils 0.2 thou/uL (0.0-0.7); #Lymphocytes 1.7 thou/uL (1.20-3.40); #Monocytes 0.7 thou/uL (0.11-0.59); #Neutrophils 6.9 thou/uL (1.40-6.50); %Basophils 0.1 % (0.0-1.0); %Eosinophils 1.8 % (0.0-10.0); %Lymphocytes 17.7 % (21.0-51.0); %Monocytes 6.9 % (0.0-10.0); %Neutrophils 73.5 % (42.0-75.0); Hemoglobin 9.1 g/dL (12.0-16.0); Mean Corpuscular HGB CONC 31.6 g/dL (32.0-36.0); Mean Corpuscular Hemoglobin 25.5 pg (27.0-31.0); Mean Corpuscular Volume 80.7 fl (81.0-99.0); Mean Platelet Volume 7.9 fL (7.4-10.4); Platelet Count 433 thou/uL (130-400); RBC Distribution Width 17.8 % (11.5-14.5); Red Blood Cell (RBC) Count 3.57 mill/uL (4.20-5.40); White Blood Cell (WBC) Count 9.3 thou/uL (4.8-10.8)
[2017-08-09 13:28] LABS: ALT (SGPT) 19 U/L (8-55); AST (SGOT) 24 U/L (5-34); Albumin 3.6 g/dL (3.4-4.8); Alkaline Phosphatase 114 U/L (40-150); Anion Gap 14 mmol/L (10-20); BUN (Urea Nitrogen) 19 mg/dL (9.8-20.1); Bilirubin, Total 0.3 mg/dL (0.2-1.2); Calc. Creatinine Clearance 0 mL/min (70-130); Calcium 9.5 mg/dL (7.8-10.44); Carbon Dioxide 27 mmol/L (23-31); Chloride 101 mmol/L (98-107); Estimated GFR-MDRD 51; Globulin 5.1 g/dL (2.4-3.5); Glucose 104 mg/dL (80-115); Potassium 4.3 mmol/L (3.5-5.1); Protein, Total 8.7 g/dL (6.0-8.3); Sodium 138 mmol/L (136-145)
[2017-08-09 14:28] LABS: Bilirubin Negative (Negative); Blood, Urine Negative (Negative); Clarity CLEAR (Clear); Glucose, Urine (Dipstick) Negative (Negative); Leukocyte Small (Negative); Nitrite Negative (Negative); Protein, Urine (Dipstick) Trace mg/dL (Neg-Trace); Specific Gravity, Urine 1.012 (1.002-1.036); pH, Urine 5.5 (5.0-9.0)
[2017-08-09 14:30] LABS: Bacteria/HPF None Seen HPF (None Seen); Hyaline Casts/LPF 0-3 HYALINE CAST LPF (0-3 Hyaline); RBC/HPF 0-3 HPF (0-3); Yeast-AUWi Flag 16.2 (0-25.0)
--- NOTE | 2017-08-09 15:34 | CT ---
CT ABDOMEN AND PELVIS WITH IV CONTRAST: HISTORY: A 67-year-old female with recent abdominal surgery after colostomy closure 9 days ago. She presents with stool leaking from the surgical incision. Minimal abdominal pain. No fever or chills. FINDINGS: Comparison is made with the exam of 05/18/17. The lung bases are unremarkable. The patient is post cholecystectomy. The liver, spleen, pancreas, adrenal glands, and kidneys are unremarkable. There a re vascular calcifications without evidence of aneurysmal dilatation of the abdominal aorta. Postop changes are seen in the lower lumbar spine. There is fecal material in the colon. There are scattered diverticula in the colon. Postsurgical changes are seen in the right lower quadrant. There is a complex density with air, soft tissue, and come fluid in the subcutaneous fat of the right lower quadrant measuring about 4.6 cm. In the absence of internal lumen of the bowel contrast connection to the bowel cannot be confirmed or excluded. There are small specks of air in the lower anterior abdominal wall. No ascites is seen. IMPRESSION: Focal phlegmonous change in the right lower quadrant. Developing abscess cannot be excluded. Connec tion to underlying bowel cannot be excluded. POS: [facility]
[2017-08-09] MEDS ORDERED: Piperacillin/Tazobactam 4.5 GM in Sodium Chloride 0.9% 100 ML IVPB SCH (15:45)
[2017-08-09] MEDS ORDERED: Ondansetron ODT 4 MG TAB SL PRN (16:20)
[2017-08-09] MEDS ORDERED: Ondansetron HCl/PF 4 MG/2 ML Vial IVP PRN ×2 (16:20→16:58)
[2017-08-09] MEDS ORDERED: Sodium Chloride 0.9% 1,000 ML IV SCH (16:20)
[2017-08-09 16:32] VITALS: BMI 38.7
[2017-08-09] MEDS: Sodium Chloride 0.9% 1,000 ML IV SCH ×2 (17:42→20:56)
--- NOTE | 2017-08-09 19:40 | HP ---
CHIEF COMPLAINT: Brown drainage from wound. HISTORY: The patient is a 67-year-old female who has had multiple abdominal surgeries over the last year, it started with a small-bowel obstruction complicated by an enterotomy that was repaired compli cated by a breakdown of that staple line with requiring reexploration and ileostomy, then she had jerrica sure of the ileostomy complicated by fistula, then she had takedown of that fistula and small bowel r esection on 07/31/2017. She was doing fine until today when she was having a bowel movement and noti eduard brown drainage coming from the wound. She said she had no pain, no fever. She says it was not f oul smelling. She thought it was stool. PAST MEDICAL HISTORY: Diabetes, hypertension, anemia. PAST SURGICAL HISTORY: Hysterectomy, cholecystectomy, Eduar fundoplication section, small bowel resection, ileostomy, closure of ileostomy, recent repair of fistula, Eduar. MEDICATIONS: Cyclobenzaprine, metoprolol, pravastatin, glyburide, Invanz, losartan. ALLERGIES: No known drug allergies. SOCIAL HISTORY: Unemployed, lives with her sister. No tobacco or alcohol. FAMILY HISTORY: Noncontributory. PHYSICAL EXAMINATION: VITAL SIGNS: Temperature 98.1, pulse 65, blood pressure 175/98. GENERAL: She is awake, alert, in no apparent distress. HEENT: Unremarkable. LUNGS: Clear. HEART: Regular rate and rhythm. ABDOMEN: Soft, nondistended, nontender. There were marybeth still in the wound. The marybeth were re moved. She had several sinus tracts, one in the lower area. With manipulation, I could express some non-foul smelling brown drainage. LABORATORY DATA AND X-RAY FINDINGS: White count is 9.3, H&H is 9 and 28, platelet count 433. Electr olytes, creatinine is 1.26, otherwise unremarkable. Urinalysis, 4-6 white cells. She had a CT scan of the abdomen that showed some phlegmonous change in the right lower quadrant. They could not rule out abscess, could not rule out connection to the underlying bowel. There were a few small specks of air in the lower abdominal wall. ASSESSMENT: Wound infection versus recurrent fistula. PLAN: We will treat with IV antibiotics, bowel rest for now.
[2017-08-09] MEDS: Piperacillin/Tazobactam 3.375 GM in Sodium Chloride 0.9% 100 ML IVPB SCH (21:53)
[2017-08-10] MEDS: Piperacillin/Tazobactam 3.375 GM in Sodium Chloride 0.9% 100 ML IVPB SCH ×2 (03:57→08:43)
[2017-08-10] MEDS: Sodium Chloride 0.9% 1,000 ML IV SCH (08:47)
[2017-08-10 15:17] VITALS: BP 160/109; TEMP 98.3
--- NOTE | 2017-08-10 22:11 | DIS ---
DATE OF ADMISSION: 08/09/2017 DATE OF DISCHARGE: 08/10/2017 DISCHARGE DIAGNOSIS: Wound infection. PROCEDURES DURING ADMISSION: CT scan of abdomen, wound care. HOSPITAL COURSE: The patient was admitted, given IV antibiotics, kept n.p.o. Initially, it sounded like she had an enterocutaneous fistula, because of her history, but the drainage was non-foul smelli ng and stopped once of the initial release. She feels fine. No pain. Drainage is minimal. She has normal white count. CT did not document any kind of abscess, so she is discharged home on a regular diet. We will add some doxycycline twice a day. She will follow up with me in 1 week. We will con tinue wound care at home daily.
== END 2017-08-10 17:22 | disposition home health service (06) | DRG 863 ==
LOC: ERS 11:26 → SJJU 15:20
PROVIDERS: ADMIT Surgery; ATTEND Surgery
DX: T81.4XXA Infection following a procedure, initial encounter (principal); B99.8 Other infectious disease; I10 Essential (primary) hypertension; E11.9 Type 2 diabetes mellitus without complications; Y83.2 Surgical operation with anastomosis, bypass or graft as the cause of abnormal reaction of the patient, or of later complication, without mention of misadventure at the time of the procedure
CPT/HCPCS: 36415; 74177; 80053; 81003; 81015; 83605; 85025; 87040; 96365; J2543; J7050

== ENCOUNTER 2017-08-14 14:31 | Inpatient (IN) | payer MEDICARE ==
[~2017-08-14 14:31] MED LIST: Heparin 1,000 UNITS/ML VIAL ONE
[2017-08-14] MEDS ORDERED: Promethazine HCl 25 MG/ML VIAL SLOW IVP PRN (15:18)
[2017-08-14] MEDS ORDERED: Ondansetron HCl/PF 4 MG/2 ML Vial SLOW IVP PRN (15:19)
[2017-08-14 15:40] LABS: #Eosinphils 0.1 thou/uL (0.0-0.7); #Lymphocytes 1.3 thou/uL (1.20-3.40); #Monocytes 0.4 thou/uL (0.11-0.59); #Neutrophils 3.8 thou/uL (1.40-6.50); %Basophils 0.3 % (0.0-1.0); %Eosinophils 2.1 % (0.0-10.0); %Lymphocytes 23.6 % (21.0-51.0); %Monocytes 7.8 % (0.0-10.0); %Neutrophils 66.1 % (42.0-75.0); Hemoglobin 9.4 g/dL (12.0-16.0); Mean Corpuscular HGB CONC 31.3 g/dL (32.0-36.0); Mean Corpuscular Hemoglobin 25.3 pg (27.0-31.0); Mean Platelet Volume 6.7 fL (7.4-10.4); Platelet Count 555 thou/uL (130-400); RBC Distribution Width 17.7 % (11.5-14.5); Red Blood Cell (RBC) Count 3.69 mill/uL (4.20-5.40); White Blood Cell (WBC) Count 5.7 thou/uL (4.8-10.8)
[2017-08-14] MEDS ORDERED: Iopamidol 370 76% 50 ML VIAL FS ONE (15:43)
[2017-08-14] MEDS ORDERED: ISOVUE-370 76%-LOCM 1 ML ONE (15:43)
[2017-08-14 16:01] LABS: ALT (SGPT) 11 U/L (8-55); AST (SGOT) 16 U/L (5-34); Albumin 3.9 g/dL (3.4-4.8); Alkaline Phosphatase 100 U/L (40-150); Anion Gap 15 mmol/L (10-20); BUN (Urea Nitrogen) 8 mg/dL (9.8-20.1); Bilirubin, Total 0.4 mg/dL (0.2-1.2); Calc. Creatinine Clearance 0 mL/min (70-130); Calcium 9.7 mg/dL (7.8-10.44); Carbon Dioxide 27 mmol/L (23-31); Chloride 101 mmol/L (98-107); Estimated GFR-MDRD 58; Globulin 4.6 g/dL (2.4-3.5); Glucose 104 mg/dL (80-115); Potassium 3.4 mmol/L (3.5-5.1); Protein, Total 8.5 g/dL (6.0-8.3); Sodium 140 mmol/L (136-145)
[2017-08-14 16:27] VITALS: BMI 44.2
[2017-08-14] MEDS ORDERED: Dextrose 50% Abboject 50 ML SYRINGE SLOW IVP PRN (16:27)
[2017-08-14] MEDS ORDERED: Dextrose 5% in Water 1,000 ML IV PRN (16:27)
[2017-08-14 17:26] LABS: INR-International Normal Ratio 1.1; PTT 32.1 SEC (22.9-36.1); Prothrombin Time 14.2 SEC (12.0-14.7)
[2017-08-14 17:39] LABS: Cardiac Risk 4.2 (Less than 4.5); Magnesium 1.7 mg/dL (1.6-2.6); Phosphorus 3.4 mg/dL (2.3-4.7)
[2017-08-14] MEDS: D5 1/2 NS w/20 mEq KCL 1,000 ML IV SCH (19:31)
[2017-08-14] MEDS: Piperacillin/Tazobactam 3.375 GM in Sodium Chloride 0.9% 100 ML IVPB SCH (19:31)
--- NOTE | 2017-08-14 20:05 | CT ---
CT ABDOMEN AND PELVIS WITH CONTRAST: Exam was ordered with IV contrast, however, IV infiltrated and very little IV contrast was administer ed. Oral contrast was administered. Comparison: CT abdomen/pelvis, 08-09-17. FINDINGS: Lung bases are clear. Liver, spleen unremarkable. There is opacification of small bowel and contrast does reach the colon. There continues to be an inflammatory process in the subcutaneous tissues of the right lower quadrant . Tiny gas pockets are seen within this process which may represent flagmentous or dense abscess. It measures up to 5 cm AP dimension. It has a similar appearance to the exam of 08-09-17. A fistulous communication to the anterior abdominal wall is documented on this study, as a fistulous tract is filled with contrast in the anterior abdomen. The fistulous tract projects to the right of m idline but the fistulous communication at the anterior abdominal wall is in the midline and there is contrast seen in what appears to be the region of the umbilicus. There is a collection of contrast at the base of the umbilicus within the abdominal wall measuring up to 2 cm. The small bowel loops are normal caliber. There is no evidence of small bowel obstruction. IMPRESSION: 1. Inflammatory process in the subcutaneous tissues of the right lower quadrant which involves the an terior abdominal wall on the right. 2. There is a fistulous tract filled with contrast from the small bowel to the anterior abdominal wal l in the midline with contrast into the subcutaneous tissues at the level of the umbilicus. A small c ollection of contrast at the base of the umbilicus within the abdominal wall is noted. POS: [facility]
[2017-08-14] MEDS ORDERED: cloNIDine 0.1 MG TAB PO PRN (21:45)
[2017-08-14] MEDS ORDERED: Metoprolol Tartrate 25 MG TAB PO SCH (21:45)
[2017-08-14] MEDS ORDERED: traMADol HCl 50 MG TAB PO PRN (21:46)
[2017-08-14] MEDS ORDERED: Multivitamins, Adult 10 ML, TRACE ELEMENT CONCENTRATE 1 ML in D30W-AA 10% with Lytes 2,... IV SCH (22:00)
[2017-08-15] MEDS: D5 1/2 NS w/20 mEq KCL 1,000 ML IV SCH ×4 (00:15→22:25)
[2017-08-15] MEDS: Piperacillin/Tazobactam 3.375 GM in Sodium Chloride 0.9% 100 ML IVPB SCH ×4 (00:15→17:24)
[2017-08-15 04:31] LABS: INR-International Normal Ratio 1.1; PTT 34.2 SEC (22.9-36.1); Prothrombin Time 14.8 SEC (12.0-14.7)
[2017-08-15 04:37] LABS: ALT (SGPT) 10 U/L (8-55); AST (SGOT) 14 U/L (5-34); Albumin 3.6 g/dL (3.4-4.8); Alkaline Phosphatase 93 U/L (40-150); Anion Gap 13 mmol/L (10-20); BUN (Urea Nitrogen) 7 mg/dL (9.8-20.1); Bilirubin, Total 0.4 mg/dL (0.2-1.2); Calc. Creatinine Clearance 88 mL/min (70-130); Calcium 9.6 mg/dL (7.8-10.44); Carbon Dioxide 31 mmol/L (23-31); Cardiac Risk 4.2 (Less than 4.5); Chloride 98 mmol/L (98-107); Cholesterol 148 mg/dl (< 200 Desired); Estimated GFR-MDRD 62; Globulin 4.3 g/dL (2.4-3.5); Glucose 93 mg/dL (80-115); HDL Cholesterol 35 mg/dL (>60 Neg Risk); LDL Cholesterol, Calculated 94 mg/dL; Magnesium 1.8 mg/dL (1.6-2.6); Phosphorus 3.7 mg/dL (2.3-4.7); Potassium 3.1 mmol/L (3.5-5.1); Protein, Total 7.9 g/dL (6.0-8.3); Sodium 139 mmol/L (136-145); Triglycerides 95 mg/dL (Less than 150)
[2017-08-15] MEDS: Metoprolol Tartrate 25 MG TAB PO SCH ×2 (07:53→22:17)
--- NOTE | 2017-08-15 10:14 | SPC ---
SONOGRAPHIC GUIDED RIGHT UPPER EXTREMITY PICC: History: Infection. Need for TT and antibiotics. FINDINGS: After explaining the procedure and answering all questions, the right upper extremity was prepped and draped in the usual sterile fashion. Sterile technique, buffered local anesthesia, sonographic vick nce and a 22 gauge needle were used to carefully access the right brachial vein. Standard technique w as then used to place a 5 [place] dual lumen PICC so that the tip lies at the level of the cavoatrial junction. Catheter was flushed and secured externally. The patient tolerated the procedure well and w as returned in unchanged condition. IMPRESSION: Technically successful right upper extremity PICC placement. Catheter is now ready for use. POS: [facility]
[2017-08-15] MEDS ORDERED: Diabetic Tussin 200 MG/10 ML UDCUP PO PRN (13:04)
[2017-08-15] MEDS ORDERED: Senokot 8.6 MG TAB PO PRN (13:04)
[2017-08-15] MEDS ORDERED: Zolpidem Tartrate 5 MG TAB PO PRN (13:04)
[2017-08-15] MEDS ORDERED: Ondansetron ODT 4 MG TAB SL PRN (13:04)
[2017-08-15] MEDS ORDERED: Chloraseptic Spray 180 ml Bottle PO PRN (13:04)
[2017-08-15] MEDS ORDERED: Labetalol HCl 100 MG/20 ML VIAL SLOW IVP PRN (13:04)
[2017-08-15] MEDS ORDERED: Artificial Tears 18 DROP/0.9 ML EA EYE PRN (13:04)
[2017-08-15] MEDS ORDERED: Mag-Al 1200 mg/1200 mg/30 ML UDCUP PO PRN (13:04)
[2017-08-15] MEDS ORDERED: Loratadine 10 MG TAB PO PRN (13:04)
[2017-08-15] MEDS ORDERED: Eucerin (Mineral Oil/Petrolatum,White) 30 gm Jar TOP PRN (13:04)
[2017-08-15] MEDS ORDERED: hydrALAZINE 20 MG/ML VIAL SLOW IVP PRN (13:04)
[2017-08-15] MEDS ORDERED: Milk Of Magnesia 30 ML UDCUP PO PRN (13:04)
[2017-08-15] MEDS ORDERED: Sodium Chloride 0.65% Nasal 44 ML BOT EA NARE PRN (13:04)
--- NOTE | 2017-08-15 13:40 | CON ---
PRIMARY CARE PHYSICIAN: Mila Bowman M.D. PRIMARY ATTENDING: Dr. Paulino Power. REASON FOR CONSULTATION: Medical comanagement. HISTORY OF PRESENT ILLNESS: A 67-year-old -[place] female who has underlying morbid obesity, hypertension, and dyslipidemia who presented with a complaint of drainage over previous surgical site. Patient had CT of the abdomen and pelvis earlier today which showed inflammatory process in the subcutaneous tissues of the right lower quadrant and there is fistulous tract filled with contrast from small bowel to anterior abdominal wall in the midline at the level of umbilicus and small collection of contrast at the base of the umbilicus. She has known history of enterocutaneous fistula. Recently, she had surgery on 07/31/2017, at that time, Dr. Bob did exploratory laparotomy, small bowel resection with anastomosis. She was doing well and she required another Emergency Room visit on 08/09/2017. At that time, the patient was having drainage through the surgical site. Patient was given bowel rest and IV antibiotic therapy and she was discharged next day on 08/10/2017. On that day, patient also had CT of the abdomen and pelvis which only showed focal phlegmonous changes in the right lower quadrant and there was no abscess and patient did not have any fever and did not have any white count and she was not given any antibiotic therapy upon discharge, but again patient started to notice more drainage over surgical site and that is why she required another CT scan and patient is being admitted for IV antibiotic therapy. Earlier today, PICC line was placed. When I saw this patient, at that time, she was not having any pain. She was comfortable. She did not have any chest pain, palpitations, and shortness of breath. She does have chronic lower extremity edema. She was worried about wound healing. PAST MEDICAL HISTORY: Diabetes type 2 controlled with oral hypoglycemics, hypertension, dyslipidemia, morbid obesity, osteoarthritis, history of enterocutaneous fistula, chronic low back pain. PAST SURGICAL HISTORY: Cholecystectomy, hysterectomy, , bilateral knee replacement, hemorrhoidectomy laminectomy. PAST PSYCHIATRIC HISTORY: Reviewed and negative. SOCIAL HISTORY: Patient is single. No history of tobacco, alcohol or illicit drug abuse. FAMILY HISTORY: One sister had NV by age of 30 and 3 brothers had NV in their 50s. Father had history of colon cancer. Mom had stroke by age of 63. REVIEW OF SYSTEMS: The following complete review of systems was negative, unless otherwise mentioned in the HPI or below: Constitutional: Weight loss or gain, ability to conduct usual activities. Skin: Rash, itching. Eyes: Double vision, pain. ENT/Mouth: Nose bleeding, neck stiffness, pain, tenderness. Cardiovascular: Palpitations, dyspnea on exertion, orthopnea. Respiratory: Shortness of breath, wheezing, cough, hemoptysis, fever or night sweats. Gastrointestinal: Poor appetite, abdominal pain, heartburn, nausea, vomiting, constipation, or diarrhea. Genitourinary: Urgency, frequency, dysuria, nocturia. Musculoskeletal: Pain, swelling. Neurologic/Psychiatric: Anxiety, depression. Allergy/Immunologic: Skin rash, bleeding tendency. Please see my HPI for pertinent positive and negative. All other review of systems reviewed and negative except as mentioned in the HPI. ALLERGIES: ACETAMINOPHEN, CODEINE, HYDROCODONE. CURRENT HOME MEDICATIONS: Aspirin 325 mg p.o. daily, vitamin D2 2000 units p.o. daily, ferrous sulfate 325 mg p.o. daily, losartan with hydrochlorothiazide 50/12.5 one tablet p.o. daily, metoprolol 25 mg p.o. b.i.d. and pravastatin 80 mg p.o. at bedtime. PHYSICAL EXAMINATION: VITAL SIGNS: Currently, temperature 97.6, pulse 50, respiratory rate 20, saturation 100% on room air, blood pressure 177/77, weight 242 pounds. GENERAL: Patient is currently alert, awake, no acute distress. HEAD: Normocephalic, atraumatic. EYES: Pupils round, reactive to light. Extraocular muscle intact. ENT: Oropharynx within normal limits. Moist mucous membranes. No oral lesion , no pharyngeal erythema, no exudate. NECK: Supple, no JVD, no thyromegaly, no carotid bruit, no jugular venous distention. LUNGS: Clear to auscultation without any rhonchi or rales. CARDIAC: S1, S2 appears regular without any murmur, no gallop, no rub. ABDOMEN: The patient does have surgical site which is draining serosanguineous fluid and covered with dressing. Bowel sounds present. Morbid obesity limiting examination. No peritoneal sign, no guarding, no rigidity, no rebound. BACK: Examination unremarkable, no CVA tenderness. EXTREMITIES: Upper extremity passive movements of all joints are normal. Lower extremity; bilateral +1 pitting edema noted. Good distal pulsation. SKIN: No skin rash. HEMATOLOGICAL SYSTEM: No lymphadenopathy. NEUROLOGIC: Nonfocal examination. She moves all 4 limbs. SIGNIFICANT LABORATORY DATA AND IMAGING DATA: 1. CBC: WBC 5.7, hemoglobin 9.4, platelet 555. INR 1.1. 2. BMP: Sodium 139, potassium 3.1, chloride 98, carbon dioxide 31, BUN 7, creatinine 1.07, glucose 93, calcium 9.6. 3. LFT: AST 14, ALT 10, alkaline phosphatase 93, albumin 3.6. Prealbumin 18.0. Triglyceride 95, cholesterol 148, LDL 94, HDL 35. 4. CT of the abdomen and pelvis earlier done which showed inflammatory process in subcutaneous tissue of the right lower quadrant which involves the anterior abdominal wall on the right and there is fistulous tract filled with contrast from small bowel to anterior abdominal wall in the midline at the level of umbilicus and small collection of contrast at the base of the umbilicus as well. ASSESSMENT AND PLAN/IMPRESSION: 1. Enterocutaneous fistula. Currently, patient is admitted under general surgeon. Patient will continue IV fluid. The patient is on clear liquid diet. The patient is also kept on Zosyn 3.375 grams IV q.6 hourly. Further management will defer to primary team. 2. Diabetes type 2. Continue insulin as per sliding scale per protocol. 3. Hypertension. Continue losartan with hydrochlorothiazide one tablet p.o. daily and metoprolol 25 mg p.o. b.i.d. 4. Dyslipidemia. Continue pravastatin 80 mg p.o. at bedtime. 5. Anemia, normocytic, normochromic. Continue ferrous sulfate 325 mg p.o. daily. 6. Hypokalemia. Replace potassium with IV fluid. 7. Morbid obesity with body mass index 44. Diet education given, weight loss education given. Healthy lifestyle measures discussed with the patient. 8. Deep venous thrombosis prophylaxis, Lovenox 40 mg subcu daily. 9. Gastrointestinal prophylaxis, Pepcid 20 mg IV b.i.d. 10. Code status: The patient is FULL CODE. Patient does not have any surrogate decision maker. Disposition plan based on clinical course. Thank you for the consult. We will follow up with you while in hospital and address medical issues and adjust medication as needed basis. BRADD
[2017-08-15] MEDS: Multivitamins, Adult 10 ML, TRACE ELEMENT CONCENTRATE 1 ML in D30W-AA 10% with Lytes 2,... IV SCH (14:47)
[2017-08-15] MEDS: Insulin Regular 300 UNITS/3 ML VIAL SC PRN (16:37)
[2017-08-15] MEDS ORDERED: Famotidine/PF 20 mg/2ml Vial SLOW IVP SCH (21:00)
[2017-08-15] MEDS ORDERED: Multivitamins, Adult 10 ML, TRACE ELEMENT CONCENTRATE 1 ML in D30W-AA 10% with Lytes 2,... IV SCH (22:00)
[2017-08-15] MEDS: Atorvastatin Calcium 20 MG TAB PO SCH (22:17)
[2017-08-15] MEDS: Famotidine 40 MG/4 ML VIAL SLOW IVP SCH (22:17)
[2017-08-16] MEDS: Insulin Regular 300 UNITS/3 ML VIAL SC PRN (00:52)
[2017-08-16] MEDS: Piperacillin/Tazobactam 3.375 GM in Sodium Chloride 0.9% 100 ML IVPB SCH ×4 (00:52→18:09)
[2017-08-16 06:07] LABS: INR-International Normal Ratio 1.1; PTT 33.2 SEC (22.9-36.1); Prothrombin Time 14.7 SEC (12.0-14.7)
[2017-08-16 06:25] LABS: ALT (SGPT) 8 U/L (8-55); AST (SGOT) 12 U/L (5-34); Albumin 3.5 g/dL (3.4-4.8); Alkaline Phosphatase 88 U/L (40-150); Anion Gap 12 mmol/L (10-20); BUN (Urea Nitrogen) 11 mg/dL (9.8-20.1); Bilirubin, Total 0.3 mg/dL (0.2-1.2); Calc. Creatinine Clearance 76 mL/min (70-130); Calcium 9.3 mg/dL (7.8-10.44); Carbon Dioxide 33 mmol/L (23-31); Cardiac Risk 3.9 (Less than 4.5); Chloride 98 mmol/L (98-107); Cholesterol 136 mg/dl (< 200 Desired); Estimated GFR-MDRD 52; Globulin 4.2 g/dL (2.4-3.5); Glucose 108 mg/dL (80-115); HDL Cholesterol 35 mg/dL (>60 Neg Risk); LDL Cholesterol, Calculated 78 mg/dL; Magnesium 1.9 mg/dL (1.6-2.6); Phosphorus 4.4 mg/dL (2.3-4.7); Potassium 3.3 mmol/L (3.5-5.1); Protein, Total 7.7 g/dL (6.0-8.3); Sodium 140 mmol/L (136-145); Triglycerides 113 mg/dL (Less than 150)
[2017-08-16] MEDS: Aspirin 325 MG TAB PO SCH (09:05)
[2017-08-16] MEDS: Ferrous Sulfate 325 MG TAB PO SCH (09:06)
[2017-08-16] MEDS: Metoprolol Tartrate 25 MG TAB PO SCH ×2 (09:06→22:17)
[2017-08-16] MEDS: Enoxaparin Sodium 40 MG/0.4 ML SYRINGE SC SCH (09:06)
[2017-08-16] MEDS: Famotidine 40 MG/4 ML VIAL SLOW IVP SCH ×2 (09:06→22:18)
--- NOTE | 2017-08-16 09:23 | PDOC.PN ---
- Subjective Encounter Start Date: 08/16/17 Encounter Start Time: 08:10 Patient seen and examined. No new complaints. No overnight events - Objective Resuscitation Status: Resuscitation Status FULL:Full Resuscitation MAR Reviewed: Yes Vital Signs & Weight: Vital Signs (12 hours) Temp Pulse Resp BP BP Pulse Ox 08/16/17 07:52 97.9 F 66 16 179/93 H 98 08/16/17 03:39 97.6 F 56 L 16 155/87 H 100 08/15/17 23:48 97.9 F 55 L 16 166/92 H 97 Weight Admit Weight 242 lb Weight 242 lb I&O: 08/15/17 08/16/17 08/17/17 06:59 06:59 06:59 Intake Total 440 3616.5 Balance 440 3616.5 Result Diagrams: 08/14/17 15:31 08/16/17 05:32 Additional Labs: Accuchecks 08/16/17 08/15/17 08/15/17 05:49 23:31 15:57 POC Glucose 126 H 182 H 167 H 08/15/17 11:09 POC Glucose 107 Phys Exam - Physical Examination Constitutional: NAD HEENT: PERRLA, moist MMs, sclera anicteric Neck: no JVD, supple Respiratory: no wheezing, no rales, no rhonchi Cardiovascular: RRR, no significant murmur, no rub Gastrointestinal: soft, non-tender, no distention, positive bowel sounds surgical wound with dressing, draining less today Musculoskeletal: pulses present, edema present Neurological: non-focal, normal sensation, moves all 4 limbs Psychiatric: normal affect, A&O x 3 Skin: no rash, normal turgor Dx/Plan (1) Enterocutaneous fistula Code(s): K63.2 - FISTULA OF INTESTINE Status: Acute (2) Hypokalemia Code(s): E87.6 - HYPOKALEMIA Status: Acute (3) Anemia, normocytic normochromic Code(s): D64.9 - ANEMIA, UNSPECIFIED Status: Chronic (4) CKD (chronic kidney disease) stage 3, GFR 30-59 ml/min Code(s): N18.3 - CHRONIC KIDNEY DISEASE, STAGE 3 (MODERATE) Status: Chronic (5) Diabetes mellitus type II, controlled Code(s): E11.9 - TYPE 2 DIABETES MELLITUS WITHOUT COMPLICATIONS Status: Chronic Qualifiers: (6) Dyslipidemia Code(s): E78.5 - HYPERLIPIDEMIA, UNSPECIFIED Status: Chronic (7) HTN (hypertension) Code(s): I10 - ESSENTIAL (PRIMARY) HYPERTENSION Status: Chronic Qualifiers: (8) Morbid obesity with BMI of 40.0-44.9, adult Code(s): E66.01 - MORBID (SEVERE) OBESITY DUE TO EXCESS CALORIES; Z68.41 - BODY MASS INDEX (BMI) 40.0-44.9, ADULT Status: Chronic - Plan cont current plan of care, plan discussed w/ family, continue antibiotics * bowel rest * continue TPN * continue IV zosyn * reduce IVF * medication reviewed as below * symptomatic treatment * discussed with family * pain controlled. Review of Systems - Review of Systems Constitutional: negative: fever, chills, sweats, weakness, malaise, other Eyes: negative: Pain, Vision Change, Conjunctivae Inflammation, Eyelid Inflammation, Redness, Other ENT: negative: Ear Pain, Ear Discharge, Nose Pain, Nose Discharge, Nose Congestion, Mouth Pain, Mouth Swelling, Throat Pain, Throat Swelling, Other Respiratory: negative: Cough, Dry, Shortness of Breath, Hemoptysis, SOB with Excertion, Pleuritic Pain, Sputum, Wheezing Cardiovascular: negative: chest pain, palpitations, orthopnea, paroxysmal nocturnal dyspnea, edema, light headedness, other Gastrointestinal: negative: Nausea, Vomiting, Abdominal Pain, Diarrhea, Constipation, Melena, Hematochezia, Other Genitourinary: negative: Dysuria, Frequency, Incontinence, Hematuria, Retention , Other Musculoskeletal: negative: Neck Pain, Shoulder Pain, Arm Pain, Back Pain, Hand Pain, Leg Pain, Foot Pain, Other Skin: negative: Rash, Lesions, Luís, Bruising, Other - Medications/Allergies Allergies/Adverse Reactions: Allergies Allergy/AdvReac Type Severity Reaction Status Date / Time acetaminophen Allergy Verified 07/25/17 14:03 [From Tylenol-Codeine #3] codeine Allergy Verified 07/25/17 14:03 hydrocodone [From Rescue] Allergy Verified 07/25/17 14:03 Medications: Current Medications Al Hydroxide/Mg Hydroxide (Maalox) 15 ml PO Q4H PRN PRN Reason: Heartburn or Indigestion Artificial Tears (Tears Naturale) 0 drop EA EYE PRN PRN PRN Reason: Dry Eyes Aspirin (Aspirin) 325 mg PO DAILY [facility] Last Admin: 08/16/17 09:05 Dose: 325 mg Atorvastatin Calcium (Lipitor) 20 mg PO HS [facility] Last Admin: 08/15/17 22:17 Dose: 20 mg Clonidine (Catapres) 0.1 mg PO Q6H PRN PRN Reason: SBP > 180 Dextrose/Water (Dextrose 50%) 25 gm SLOW IVP PRN PRN PRN Reason: Hypoglycemia Enoxaparin Sodium (Lovenox) 40 mg SC 0900 [facility] Last Admin: 08/16/17 09:06 Dose: 40 mg Famotidine (Pepcid) 20 mg SLOW IVP Q12HR [facility] Last Admin: 08/16/17 09:06 Dose: 20 mg Ferrous Sulfate (Feosol) 325 mg PO QAM[facility] Last Admin: 08/16/17 09:06 Dose: 325 mg Glucagon (Glucagon) 1 mg IM PRN PRN PRN Reason: Hypoglycemia Guaifenesin (Robitussin Sf) 200 mg PO Q4H PRN PRN Reason: Cough HCTZ/Losartan Potassium (Hyzaar 50/12.5) [facility] [place] Admin: 08/16/17 09:05 Dose: 1 tab Hydralazine HCl (Apresoline) 10 mg SLOW IVP Q4H PRN PRN Reason: Systolic BP > 180 Dextrose/Water (D5w) 1,000 mls @ 0 mls/hr IV .Q0M PRN; As Directed PRN Reason: Hypoglycemia Piperacillin Sod/Tazobactam (Sod 3.375 gm/ Sodium Chloride) 100 mls @ 200 mls/ hr IVPB Q6HR [facility] Last Admin: 08/16/17 05:34 Dose: 100 mls Multivitamins 10 ml/ Chromium/Copper/Manganese/Seleni/Zn 1 ml/ Amino Acids/ Electrolytes/Fat Emulsion Intravenous 2,261 mls @ 94.208 mls/hr IV 1400 [facility] Last Admin: 08/15/17 14:47 Dose: 2,261 mls Potassium Chloride/Dextrose/Sod Cl (D5 1/2 Ns W/20 Meq Kcl) 1,000 mls @ 75 mls/ hr IV .[id number] [facility] Insulin Human Regular (Humulin R) 0 units SC .MODERATE SLIDING SC PRN PRN Reason: Moderate Correctional Scale Last Admin: 08/16/17 00:52 Dose: 2 unit Labetalol HCl (Normodyne) 20 mg SLOW IVP Q4H PRN PRN Reason: Systolic BP > 180 Loratadine (Claritin) 10 mg PO DAILYPRN PRN PRN Reason: Sinus Symptoms Magnesium Hydroxide (Milk Of Magnesium) 30 ml PO DAILYPRN PRN PRN Reason: Constipation Metoprolol Tartrate (Lopressor) 25 mg PO BID [facility] Last Admin: 08/16/17 09:06 Dose: 25 mg Mineral Oil/White Petrolatum (Eucerin Cream) 0 gm TOP BIDPRN PRN PRN Reason: Dry Skin Ondansetron HCl (Zofran) 4 mg SLOW IVP Q8H PRN PRN Reason: Nausea/Vomiting Ondansetron HCl (Zofran Odt) 4 mg SL Q6H PRN PRN Reason: Nausea/Vomiting Phenol (Chloraseptic [place] 180 Ml Bot) 0 ml PO PRN PRN PRN Reason: Sore Throat Promethazine HCl (Phenergan) 12.5 mg SLOW IVP Q2H PRN PRN Reason: Nausea/Vomiting Senna (Senokot) 2 tab PO HSPRN PRN PRN Reason: Constipation Sodium Chloride ([place] Nasal [place] 0.65%) 0 ml EA NARE QIDPRN PRN PRN Reason: Nasal Congestion Sodium Chloride (Flush - Normal Saline) 10 ml IVF Q12HR [facility] Sodium Chloride (Flush - Normal Saline) 10 ml IVF PRN PRN PRN Reason: Saline Flush Tramadol HCl (Ultram) 50 mg PO Q8H PRN PRN Reason: Pain Zolpidem Tartrate (Ambien) 5 mg PO HSPRN PRN PRN Reason: Insomnia
[2017-08-16] MEDS: D5 1/2 NS w/20 mEq KCL 1,000 ML IV SCH ×2 (12:29→22:17)
[2017-08-16] MEDS: Multivitamins, Adult 10 ML, TRACE ELEMENT CONCENTRATE 1 ML in D30W-AA 10% with Lytes 2,... IV SCH (13:57)
[2017-08-16] MEDS: Atorvastatin Calcium 20 MG TAB PO SCH (22:18)
[2017-08-17] MEDS: Piperacillin/Tazobactam 3.375 GM in Sodium Chloride 0.9% 100 ML IVPB SCH ×4 (00:05→18:09)
[2017-08-17] MEDS: Insulin Regular 300 UNITS/3 ML VIAL SC PRN (00:57)
[2017-08-17 06:39] LABS: ALT (SGPT) 8 U/L (8-55); AST (SGOT) 14 U/L (5-34); Albumin 3.6 g/dL (3.4-4.8); Alkaline Phosphatase 87 U/L (40-150); Anion Gap 12 mmol/L (10-20); BUN (Urea Nitrogen) 17 mg/dL (9.8-20.1); Bilirubin, Total 0.4 mg/dL (0.2-1.2); Calc. Creatinine Clearance 76 mL/min (70-130); Calcium 9.3 mg/dL (7.8-10.44); Carbon Dioxide 32 mmol/L (23-31); Cardiac Risk 4.2 (Less than 4.5); Chloride 99 mmol/L (98-107); Cholesterol 130 mg/dl (< 200 Desired); Estimated GFR-MDRD 52; Globulin 4.2 g/dL (2.4-3.5); Glucose 94 mg/dL (80-115); HDL Cholesterol 31 mg/dL (>60 Neg Risk); LDL Cholesterol, Calculated 74 mg/dL; Magnesium 1.9 mg/dL (1.6-2.6); Phosphorus 4.2 mg/dL (2.3-4.7); Potassium 3.4 mmol/L (3.5-5.1); Protein, Total 7.8 g/dL (6.0-8.3); Sodium 140 mmol/L (136-145); Triglycerides 125 mg/dL (Less than 150)
[2017-08-17 07:22] LABS: INR-International Normal Ratio 1.2; PTT 31.2 SEC (22.9-36.1); Prothrombin Time 14.9 SEC (12.0-14.7)
[2017-08-17] MEDS ORDERED: Potassium Chloride 20 MEQ/100 ML PREMIX BAG IVPB SCH (07:30)
[2017-08-17] MEDS ORDERED: Potassium Chloride 20 MEQ in Premix Bag 1 BAG IVPB SCH (07:30)
[2017-08-17] MEDS ORDERED: Potassium Chloride 20 MEQ, Admixture Fee 1 EACH in Sodium Chloride 0.9% 100 ML IVPB SCH (09:00)
--- NOTE | 2017-08-17 09:10 | PDOC.PN ---
- Subjective Encounter Start Date: 08/17/17 Encounter Start Time: 07:40 Patient seen and examined. No new complaints. No overnight events - Objective Resuscitation Status: Resuscitation Status FULL:Full Resuscitation MAR Reviewed: Yes Vital Signs & Weight: Vital Signs (12 hours) Temp Pulse Resp BP BP Pulse Ox 08/17/17 07:42 97.7 F 57 L 18 157/77 H 98 08/17/17 04:00 97.8 F 58 L 17 148/91 H 99 08/16/17 23:50 97.4 F L 60 18 152/76 H 97 08/16/17 22:17 64 Weight Admit Weight 242 lb Weight 242 lb I&O: 08/16/17 08/17/17 08/18/17 06:59 06:59 06:59 Intake Total 3616.5 1375 Balance 3616.5 1375 Result Diagrams: 08/14/17 15:31 08/17/17 05:26 Additional Labs: Accuchecks 08/17/17 08/17/17 08/16/17 05:43 00:22 17:08 POC Glucose 118 H 159 H 165 H 08/16/17 12:22 POC Glucose 160 H Phys Exam - Physical Examination Constitutional: NAD HEENT: PERRLA, moist MMs, sclera anicteric Neck: no JVD, supple Respiratory: no wheezing, no rales, no rhonchi Cardiovascular: RRR, no significant murmur, no rub Gastrointestinal: soft, non-tender, no distention, positive bowel sounds wound with dressing Musculoskeletal: no edema, pulses present Neurological: non-focal, normal sensation, moves all 4 limbs Psychiatric: normal affect, A&O x 3 Skin: no rash, normal turgor Dx/Plan (1) Enterocutaneous fistula Code(s): K63.2 - FISTULA OF INTESTINE Status: Acute (2) Hypokalemia Code(s): E87.6 - HYPOKALEMIA Status: Acute (3) Anemia, normocytic normochromic Code(s): D64.9 - ANEMIA, UNSPECIFIED Status: Chronic (4) CKD (chronic kidney disease) stage 3, GFR 30-59 ml/min Code(s): N18.3 - CHRONIC KIDNEY DISEASE, STAGE 3 (MODERATE) Status: Chronic (5) Diabetes mellitus type II, controlled Code(s): E11.9 - TYPE 2 DIABETES MELLITUS WITHOUT COMPLICATIONS Status: Chronic Qualifiers: (6) Dyslipidemia Code(s): E78.5 - HYPERLIPIDEMIA, UNSPECIFIED Status: Chronic (7) HTN (hypertension) Code(s): I10 - ESSENTIAL (PRIMARY) HYPERTENSION Status: Chronic Qualifiers: (8) Morbid obesity with BMI of 40.0-44.9, adult Code(s): E66.01 - MORBID (SEVERE) OBESITY DUE TO EXCESS CALORIES; Z68.41 - BODY MASS INDEX (BMI) 40.0-44.9, ADULT Status: Chronic - Plan cont current plan of care, continue antibiotics * continue TPN * continue wound care * continue zosyn * replace potassium * medication reviewed as below * symptomatic treatment. Review of Systems - Review of Systems ENT: negative: Ear Pain, Ear Discharge, Nose Pain, Nose Discharge, Nose Congestion, Mouth Pain, Mouth Swelling, Throat Pain, Throat Swelling, Other Respiratory: negative: Cough, Dry, Shortness of Breath, Hemoptysis, SOB with Excertion, Pleuritic Pain, Sputum, Wheezing Cardiovascular: negative: chest pain, palpitations, orthopnea, paroxysmal nocturnal dyspnea, edema, light headedness, other Gastrointestinal: negative: Nausea, Vomiting, Abdominal Pain, Diarrhea, Constipation, Melena, Hematochezia, Other Genitourinary: negative: Dysuria, Frequency, Incontinence, Hematuria, Retention , Other Musculoskeletal: negative: Neck Pain, Shoulder Pain, Arm Pain, Back Pain, Hand Pain, Leg Pain, Foot Pain, Other - Medications/Allergies Allergies/Adverse Reactions: Allergies Allergy/AdvReac Type Severity Reaction Status Date / Time acetaminophen Allergy Verified 07/25/17 14:03 [From Tylenol-Codeine #3] codeine Allergy Verified 07/25/17 14:03 hydrocodone [From [place]] Allergy Verified 07/25/17 14:03 Medications: Current Medications Al Hydroxide/Mg Hydroxide (Maalox) 15 ml PO Q4H PRN PRN Reason: Heartburn or Indigestion Artificial Tears (Tears Naturale) 0 drop EA EYE PRN PRN PRN Reason: Dry Eyes Aspirin (Aspirin) 325 mg PO DAILY [facility] Last Admin: 08/16/17 09:05 Dose: 325 mg Atorvastatin Calcium (Lipitor) 20 mg PO HS [facility] Last Admin: 08/16/17 22:18 Dose: 20 mg Clonidine (Catapres) 0.1 mg PO Q6H PRN PRN Reason: SBP > 180 Dextrose/Water (Dextrose 50%) 25 gm SLOW IVP PRN PRN PRN Reason: Hypoglycemia Enoxaparin Sodium (Lovenox) 40 mg SC 0900 [facility] Last Admin: 08/16/17 09:06 Dose: 40 mg Famotidine (Pepcid) 20 mg SLOW IVP Q12HR [facility] Last Admin: 08/16/17 22:18 Dose: 20 mg Ferrous Sulfate (Feosol) 325 mg PO QAM[facility] Last Admin: 08/16/17 09:06 Dose: 325 mg Glucagon (Glucagon) 1 mg IM PRN PRN PRN Reason: Hypoglycemia Guaifenesin (Robitussin Sf) 200 mg PO Q4H PRN PRN Reason: Cough HCTZ/Losartan Potassium (Hyzaar 50/12.5) 1 tab PO QAM [facility] Last Admin: 08/16/17 09:05 Dose: 1 tab Hydralazine HCl (Apresoline) 10 mg SLOW IVP Q4H PRN PRN Reason: Systolic BP > 180 Dextrose/Water (D5w) 1,000 mls @ 0 mls/hr IV .Q0M PRN; As Directed PRN Reason: Hypoglycemia Piperacillin Sod/Tazobactam (Sod 3.375 gm/ Sodium Chloride) 100 mls @ 200 mls/ hr IVPB Q6HR [facility] Last Admin: 08/17/17 06:03 Dose: 100 mls Multivitamins 10 ml/ Chromium/Copper/Manganese/Seleni/Zn 1 ml/ Amino Acids/ Electrolytes/Fat Emulsion Intravenous 2,261 mls @ 94.208 mls/hr IV 1400 [facility] Last Admin: 08/16/17 13:57 Dose: 2,261 mls Potassium Chloride 20 meq/Miscellaneous Medication 1 each/ Sodium Chloride 110 mls @ 55 mls/hr IVPB [facility] Stop: 08/17/17 12:00 Insulin Human Regular (Humulin R) 0 units SC .MODERATE SLIDING SC PRN PRN Reason: Moderate Correctional Scale Last Admin: 08/17/17 00:57 Dose: 2 unit Labetalol HCl (Normodyne) 20 mg SLOW IVP Q4H PRN PRN Reason: Systolic BP > 180 Loratadine (Claritin) 10 mg PO DAILYPRN PRN PRN Reason: Sinus Symptoms Magnesium Hydroxide (Milk Of Magnesium) 30 ml PO DAILYPRN PRN PRN Reason: Constipation Metoprolol Tartrate (Lopressor) 25 mg PO BID [facility] Last Admin: 08/16/17 22:17 Dose: 25 mg Mineral Oil/White Petrolatum (Eucerin Cream) 0 gm TOP BIDPRN PRN PRN Reason: Dry Skin Ondansetron HCl (Zofran) 4 mg SLOW IVP Q8H PRN PRN Reason: Nausea/Vomiting Ondansetron HCl (Zofran Odt) 4 mg SL Q6H PRN PRN Reason: Nausea/Vomiting Phenol (Chloraseptic [place] 180 Ml Bot) 0 ml PO PRN PRN PRN Reason: Sore Throat Promethazine HCl (Phenergan) 12.5 mg SLOW IVP Q2H PRN PRN Reason: Nausea/Vomiting Senna (Senokot) 2 tab PO HSPRN PRN PRN Reason: Constipation Sodium Chloride ([place] Nasal [place] 0.65%) 0 ml EA NARE QIDPRN PRN PRN Reason: Nasal Congestion Sodium Chloride (Flush - Normal Saline) 10 ml IVF Q12HR [facility] Last Admin: 08/16/17 22:20 Dose: Not Given Sodium Chloride (Flush - Normal Saline) 10 ml IVF PRN PRN PRN Reason: Saline Flush Tramadol HCl (Ultram) 50 mg PO Q8H PRN PRN Reason: Pain Zolpidem Tartrate (Ambien) 5 mg PO HSPRN PRN PRN Reason: Insomnia
[2017-08-17] MEDS: Metoprolol Tartrate 25 MG TAB PO SCH ×2 (09:42→21:29)
[2017-08-17] MEDS: Enoxaparin Sodium 40 MG/0.4 ML SYRINGE SC SCH (09:42)
[2017-08-17] MEDS: Famotidine 40 MG/4 ML VIAL SLOW IVP SCH ×2 (09:42→21:28)
[2017-08-17] MEDS: Aspirin 325 MG TAB PO SCH (09:42)
[2017-08-17] MEDS: Ferrous Sulfate 325 MG TAB PO SCH (09:43)
[2017-08-17 15:05] VITALS: TEMP 97.9
[2017-08-17] MEDS: Multivitamins, Adult 10 ML, TRACE ELEMENT CONCENTRATE 1 ML in D30W-AA 10% with Lytes 2,... IV SCH (15:10)
--- NOTE | 2017-08-17 18:46 | DIS ---
DISCHARGE DIAGNOSIS: Recurrent enterocutaneous fistula. PROCEDURES DURING ADMISSION: CT scan of abdomen, IV antibiotics, PICC line placement, central TPN. HOSPITAL COURSE: The patient was admitted. She was given a CT scan with oral and IV contrast, which really documented the enterocutaneous fistula. There was no significant abscess cavity to drain. H er white count was normal. She was started on antibiotics, put at bowel rest, and treated with TPN a fter PICC line was placed. She feels fine. Drainage is diminished since we put her at bowel rest. So, the plan is to do home TPN and follow her carefully and local wound care. I will see her back in 10 days.
[2017-08-17] MEDS: Atorvastatin Calcium 20 MG TAB PO SCH (21:28)
[2017-08-17] MEDS ORDERED: Famotidine 20 MG TAB PO SCH (21:30)
[2017-08-18] MEDS: Piperacillin/Tazobactam 3.375 GM in Sodium Chloride 0.9% 100 ML IVPB SCH ×2 (00:58→06:02)
[2017-08-18 07:45] VITALS: BP 155/80
[2017-08-18] MEDS: Aspirin 325 MG TAB PO SCH (08:33)
[2017-08-18] MEDS: Ferrous Sulfate 325 MG TAB PO SCH (08:33)
[2017-08-18] MEDS: Metoprolol Tartrate 25 MG TAB PO SCH (08:34)
[2017-08-18] MEDS ORDERED: Enoxaparin Sodium 40 MG/0.4 ML SYRINGE SC SCH (09:00)
[2017-08-18] MEDS ORDERED: Famotidine 20 MG TAB PO SCH (09:00)
--- NOTE | 2017-08-18 09:56 | DIS ---
SIGN OFF NOTE PRIMARY CARE PHYSICIAN: Dr. Bowman DATE OF ADMISSION: 08/14/2017 DATE OF DISCHARGE: 08/18/2017 DISCHARGE DISPOSITION: Home with outpatient TPN therapy. PRIMARY DISCHARGE DIAGNOSES: 1. Enterocutaneous fistula. 2. Hypokalemia. SECONDARY DISCHARGE DIAGNOSES: 1. Morbid obesity with BMI 44. 2. Hypertension. 3. Dyslipidemia. 4. Diabetes type 2. 5. Chronic kidney disease stage 3. 6. Normocytic normochromic anemia. PRIMARY PROCEDURES/OPERATIONS: PICC line. RADIOLOGICAL INVESTIGATION: Abdomen and pelvis CT scan. SIGNIFICANT LABS: Hemoglobin 9.4. INR 1.2, creatinine 1.25. Liver enzymes normal. LDL 74, potassi um 3.4. DISCHARGE MEDICATIONS: Aspirin 324 mg p.o. daily, vitamin D2 2000 units p.o. daily, ferrous sulfate 325 mg p.o. daily, losartan with hydrochlorothiazide 50/12.5 one tablet p.o. daily, metoprolol 25 mg p.o. b.i.d., pravastatin 80 mg p.o. at bedtime, TPN as per surgeon. CONTRAINDICATIONS: None. CODE STATUS: FULL CODE. INPATIENT CONSULTANTS: Dr. Bob was primary while in hospital. Michelle Team was consulted for medica l management. ALLERGIES: ACETAMINOPHEN, CODEINE, HYDROCODONE. DISCHARGE PLAN: Post hospital, the patient will follow up with primary care physician, Dr. Bob as instructed. HOSPITAL COURSE: A 67-year-old female who was admitted with drainage over previous surgical site ove r enterocutaneous fistula. She had CT of the abdomen and pelvis that confirmed enterocutaneous fistu la. The patient was admitted in hospital. Dr. Bob admitted this patient. Michelle Team was consulte d for medical comanagement. We resumed the patient on all her home medication while in hospital and managed medical problems while in hospital. The patient underwent PICC line placement. After that, patient was getting Zosyn while in hospital. The patient was also getting TPN therapy and she was ge tting bowel rest and with that the drain is significantly improved. Today, the patient is planned fo r discharge by primary team and we will sign off. scale manager is working on to arrange TPN supply a t home. Overall, the patient is medically stable for discharge. The patient is seen and examined at bedside today. All review of system reviewed with her negative a nd we will sign off.
--- NOTE | 2017-08-18 12:06 | PDOC.PN ---
- Subjective Encounter Start Date: 08/18/17 Encounter Start Time: 09:15 Patient seen and examined. No new complaints. No overnight events - Objective Resuscitation Status: Resuscitation Status FULL:Full Resuscitation MAR Reviewed: Yes Vital Signs & Weight: Vital Signs (12 hours) Temp Pulse Resp BP Pulse Ox 08/18/17 08:00 97.9 F 60 15 08/18/17 07:44 97.9 F 60 15 155/80 H 100 08/18/17 00:58 55 L 100 Weight Admit Weight 242 lb Weight 242 lb I&O: 08/17/17 08/18/17 08/19/17 06:59 06:59 06:59 Intake Total 1375 720 Balance 1375 720 Result Diagrams: 08/14/17 15:31 08/17/17 05:26 Additional Labs: Accuchecks 08/17/17 08/17/17 16:20 12:09 POC Glucose 125 H 134 H Phys Exam - Physical Examination Constitutional: NAD HEENT: PERRLA, moist MMs, sclera anicteric Neck: no JVD, supple Respiratory: no wheezing, no rales, no rhonchi Cardiovascular: RRR, no significant murmur, no rub Gastrointestinal: soft, non-tender, no distention, positive bowel sounds surgical site with dressing Musculoskeletal: no edema, pulses present Neurological: non-focal, normal sensation, moves all 4 limbs Psychiatric: normal affect, A&O x 3 Skin: no rash, normal turgor Dx/Plan (1) Enterocutaneous fistula Code(s): 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 - FISTULA OF INTESTINE Status: Acute (2) Hypokalemia Code(s): E87.6 - HYPOKALEMIA Status: Acute (3) Anemia, normocytic normochromic Code(s): D64.9 - ANEMIA, UNSPECIFIED Status: Chronic (4) CKD (chronic kidney disease) stage 3, GFR 30-59 ml/min Code(s): N18.3 - CHRONIC KIDNEY DISEASE, STAGE 3 (MODERATE) Status: Chronic (5) Diabetes mellitus type II, controlled Code(s): E11.9 - TYPE 2 DIABETES MELLITUS WITHOUT COMPLICATIONS Status: Chronic Qualifiers: (6) Dyslipidemia Code(s): E78.5 - HYPERLIPIDEMIA, UNSPECIFIED Status: Chronic (7) HTN (hypertension) Code(s): I10 - ESSENTIAL (PRIMARY) HYPERTENSION Status: Chronic Qualifiers: (8) Morbid obesity with BMI of 40.0-44.9, adult Code(s): E66.01 - MORBID (SEVERE) OBESITY DUE TO EXCESS CALORIES; Z68.41 - BODY MASS INDEX (BMI) 40.0-44.9, ADULT Status: Chronic - Plan cont current plan of care, continue antibiotics * medication reviewed as below * symptomatic treatment * see discharge summery. Review of Systems - Review of Systems ENT: negative: Ear Pain, Ear Discharge, Nose Pain, Nose Discharge, Nose Congestion, Mouth Pain, Mouth Swelling, Throat Pain, Throat Swelling, Other Respiratory: negative: Cough, Dry, Shortness of Breath, Hemoptysis, SOB with Excertion, Pleuritic Pain, Sputum, Wheezing Cardiovascular: negative: chest pain, palpitations, orthopnea, paroxysmal nocturnal dyspnea, edema, light headedness, other Gastrointestinal: negative: Nausea, Vomiting, Abdominal Pain, Diarrhea, Constipation, Melena, Hematochezia, Other Genitourinary: negative: Dysuria, Frequency, Incontinence, Hematuria, Retention , Other Musculoskeletal: negative: Neck Pain, Shoulder Pain, Arm Pain, Back Pain, Hand Pain, Leg Pain, Foot Pain, Other Skin: negative: Rash, Lesions, Lu[place], Bruising, Other - Medications/Allergies Allergies/Adverse Reactions: Allergies Allergy/AdvReac Type Severity Reaction Status Date / Time acetaminophen Allergy Verified 07/25/17 14:03 [From Tylenol-Codeine #3] codeine Allergy Verified 07/25/17 14:03 hydrocodone [From [place]] Allergy Verified 07/25/17 14:03
== END 2017-08-18 11:02 | disposition home or self-care (01) | DRG 394 ==
LOC: SURG A 14:33
PROVIDERS: ADMIT Surgery; ATTEND Surgery
PROC: 02HV33Z Insertion of Infusion Device into Superior Vena Cava, Percutaneous Approach (ICD-10-PCS; principal; 2017-08-15)
PROC: B548ZZA Ultrasonography of Superior Vena Cava, Guidance (ICD-10-PCS; 2017-08-15)
PROC: 3E0436Z Introduction of Nutritional Substance into Central Vein, Percutaneous Approach (ICD-10-PCS; 2017-08-15)
DX: K63.2 Fistula of intestine (principal); Z68.41 Body mass index [BMI] 40.0-44.9, adult; E11.22 Type 2 diabetes mellitus with diabetic chronic kidney disease; N18.3 Chronic kidney disease, stage 3 (moderate); E66.01 Morbid (severe) obesity due to excess calories; D63.8 Anemia in other chronic diseases classified elsewhere; E78.5 Hyperlipidemia, unspecified; E87.6 Hypokalemia; I12.9 Hypertensive chronic kidney disease with stage 1 through stage 4 chronic kidney disease, or unspecified chronic kidney disease; Z79.84 Long term (current) use of oral hypoglycemic drugs
CPT/HCPCS: 36415; 36416; 36569; 74177; 80053; 80061; 83735; 84100; 84134; 85025; 85610; 85730; A4216; C1751; J1644; J1650; J1815; J2543; J3480; J7050; S0028

== ENCOUNTER 2017-08-29 19:04 | Emergency (ER) | payer MEDICARE, MEDICAID ==
[2017-08-29 19:37] LABS: #Eosinphils 0.1 thou/uL (0.0-0.7); #Lymphocytes 1.6 thou/uL (1.20-3.40); #Monocytes 0.6 thou/uL (0.11-0.59); #Neutrophils 2.3 thou/uL (1.40-6.50); %Basophils 0.2 % (0.0-1.0); %Eosinophils 2.5 % (0.0-10.0); %Lymphocytes 34.1 % (21.0-51.0); %Neutrophils 50.3 % (42.0-75.0); Hemoglobin 9.3 g/dL (12.0-16.0); Mean Corpuscular HGB CONC 32.6 g/dL (32.0-36.0); Mean Corpuscular Hemoglobin 25.5 pg (27.0-31.0); Mean Corpuscular Volume 78.3 fl (81.0-99.0); Mean Platelet Volume 10.2 fL (7.4-10.4); Platelet Count 219 thou/uL (130-400); RBC Distribution Width 16.8 % (11.5-14.5); Red Blood Cell (RBC) Count 3.64 mill/uL (4.20-5.40); White Blood Cell (WBC) Count 4.7 thou/uL (4.8-10.8)
[2017-08-29 20:06] LABS: ALT (SGPT) 26 U/L (8-55); AST (SGOT) 26 U/L (5-34); Albumin 3.9 g/dL (3.4-4.8); Alkaline Phosphatase 138 U/L (40-150); Anion Gap 15 mmol/L (10-20); BUN (Urea Nitrogen) 59 mg/dL (9.8-20.1); Bilirubin, Total 0.3 mg/dL (0.2-1.2); Calc. Creatinine Clearance 0 mL/min (70-130); Calcium 10.2 mg/dL (7.8-10.44); Carbon Dioxide 25 mmol/L (23-31); Chloride 100 mmol/L (98-107); Estimated GFR-MDRD 40; Globulin 5.2 g/dL (2.4-3.5); Glucose 151 mg/dL (80-115); Potassium 4.6 mmol/L (3.5-5.1); Protein, Total 9.1 g/dL (6.0-8.3); Sodium 135 mmol/L (136-145)
--- NOTE | 2017-09-06 15:09 | EKG ---
Test Reason : Blood Pressure : / mmHG Vent. Rate : 069 BPM Atrial Rate : 069 BPM P-R Int : 138 ms QRS Dur : 104 ms QT Int : 400 ms P-R-T Axes : 053 -04 032 degrees QTc Int : 428 ms Normal sinus rhythm Normal ECG Confirmed by SAMMIE OCONNELL D.O. ([id number]), story editor MIGUEL GARCIA ([id number] on 09/06/2017 3:07:56 PM Referred By: KOURTNEY Confirmed By:SAMMIE OCONNELL D.O.
== END 2017-08-29 22:54 | disposition home or self-care (01) ==
LOC: ERS 19:04
DX: R79.9 Abnormal finding of blood chemistry, unspecified (principal); E11.9 Type 2 diabetes mellitus without complications; E78.5 Hyperlipidemia, unspecified; I10 Essential (primary) hypertension
CPT/HCPCS: 36415; 36416; 93005